=== PATIENT | female | born 2005 | race Caucasian/White ===

== ENCOUNTER 2025-01-15 02:21 | Emergency (ER) | payer OTHER, SELFPAY ==
--- OUTSIDE RECORDS SUMMARY | 2025-01-04 15:00 | XMS_ITS | Encounter Summary ---
Author Organization [employer] Address [address] [address] Care Team Providers Care Channeler Insole Name Role Phone Dariana Cantu APRN, CNP Primary Care Provide r Reason for Visit * ReasonCommentsPreop ExamPre-op; tonsil and adenoid removal; 01/11/2025; not sure; [facility]; [phone] Encounter Details DateTypeDepartmentCare Team (Latest Contact Info)Ckmtjnthjqr91/28/2025 3:00 PM CSTPre-Op Visit [place] [address] [facility] [address] [place] [address] [place] [address] [place], [place] [phone] Preop examination (Primary Dx); Tonsillar hypertrophy; Routine screening for STI (sexually transmitted infection); Need for hepatitis C screening test Social History Tobacco UseTypesPacks/DayYears UsedDateSmoking Tobacco: NeverPassive Smoke Exposure: NeverSmokeless Tobacco: NeverAlcohol UseStandard Drinks/WeekComments Not Currently0 (1 standard drink = 0.6 oz pure alcohol)PHQ-2AnswerDate Recorded PHQ-2 Fsrft737/05/2024CommentsNoSex and Gender InformationValueDate RecordedSex Assigned at BirthNot on fileLegal SubUoueth43/02/2021 11:30 AM CDT Gender IdentityNot on fileSexual OrientationNot on filedocumented as of this encounter Last Filed Vital Signs Vital SignReadingTime TakenCommentsBlood Dhkmlyus823/7301/04/2025 2:55 PM PUBLISHING DIRECTOR Nxkel696501/04/2025 2:55 PM UOIZxpdshcbsur17.8 ??C (98.2 ??F)01/04/2025 2:55 PM CSTRespiratory Tmet219103/06/2024 2:55 PM CSTOxygen Yppktenrlu70%01/04/2025 2:55 PM CSTInhaled Oxygen Concentration--Laymuw60.1 kg (128 lb)01/04/2025 2:55 PM PUBLISHING DIRECTOR Panrqb088.2 cm (5' 4.25)01/04/2025 2:55 PM CSTBody Mass Index21.8103/06/2024 2:55 PM CSTdocumented in this encounter Patient Instructions * Patient Instructions* Zuleyka Arroyo DO - 01/04/2025 3:00 PM PUBLISHING DIRECTOR Follow your individualized medication recommendations as described above. In addition, please stop all xcaj-vct-uidvffk medications including aspirin, ibuprofen (Advil, Motrin), naproxen [...] health-related equipment or devices you use daily ISHING DIRECTOR documented in this encounter OR Notes * H&P - Zuleyka Arroyo DO - 01/04/2025 3:00 PM CST Pre-Operative Assessment 01/04/2025 Pre-Op Assessment Procedure Details Procedure Bilateral Adenotonsillectomy Surgeon Maday Pizano Location (Internal) [facility] Procedure Date 01/11/2025 Fax Number [phone] Cedrick Regan is a 19 y.o. old [...] Neck pain 03/09/2022 PTSD (post-traumatic stress disorder) ([facility]) 03/09/2022 Acne 04/06/2021 Anxiety ([facility]) 11/28/2020 Depression 11/28/2020 Nonintractable headache 11/28/2020 Past [...] described above. In addition, please stop all snyd-ari-ynpgrmf medications including aspirin, ibuprofen (Advil, Motrin), naproxen [...] Family History Thromboembolic Disease Negative Family History ISHING DIRECTOR documented in this encounter Plan of Treatment Not on file documented as of this encounter Results * Test (Urine) (01/04/2025 3:24 PM PUBLISHING DIRECTOR)ComponentValueRef RangeTest MethodAnalysis TimePerformed AtPathologist SignatureHCG, UrineNegativeNegative 01/04/2025 3:29 PM [facility] LABORATORYSpecimen (Source)Anatomical Location / LateralityCollection Method / VolumeCollection TimeReceived TimeUrineNon- blood Collection / Einwyca1901/04/2025 3:24 PM CST01/04/2025 3:24 PM PUBLISHING DIRECTOR Narrative Authorizing ProviderResult TypeResult StatusCojosefa Arroyo DOLAB_1Final Result Performing OrganizationAddressCity/State/ZIP CodePhone Number [facility] CLIA: [id number] [address] [place] [address], [facility] * Chlamydia & GC, Urine (14 Years and Older) (01/04/2025 3:20 PM PUBLISHING DIRECTOR)Component ValueRef RangeTest MethodAnalysis TimePerformed AtPathologist Signature Chlamydia Trachomatis STDNot DetectedNot Ruynxssu74/29/2025 1:11 PM PUBLISHING DIRECTOR [facility] LABORATORYN. gonorrhoeae STDNot DetectedNot Detected 01/05/2025 1:11 PM CSTTHE [facility] LABORATORYSpecimen (Source) Anatomical Location / LateralityCollection Method / VolumeCollection Time Received TimeUrine STDNon-blood Collection / Hqluugi1501/04/2025 3:20 PM PUBLISHING DIRECTOR 01/04/2025 3:24 PM PUBLISHING DIRECTOR Narrative [facility] - 01/05/2025 1:11 PM PUBLISHING DIRECTOR Test performed by Programming Instructor Mediated Amplification (TMA). Authorizing ProviderResult TypeResult StatusCojosefa Arroyo DOLAB_1Final Result Performing OrganizationAddressCity/State/ZIP CodePhone Number [facility] CLIA: [id number] [address] [address] * Hemoglobin, Blood (01/04/2025 3:20 PM PUBLISHING DIRECTOR)ComponentValueRef RangeTest Method Analysis TimePerformed AtPathologist IjgfpfgszVemfreoozp89.612.0 - 15.5 g/dL 01/04/2025 3:24 PM CSTBEAVER LABORATORYSpecimen (Source)Anatomical Location / LateralityCollection Method / VolumeCollection TimeReceived TimeBlood Venipuncture / Dvwwtar4901/04/2025 3:20 PM CST01/04/2025 3:20 PM PUBLISHING DIRECTOR Narrative Authorizing ProviderResult TypeResult StatusCojosefa Arroyo DOLAB_1Final Result Performing OrganizationAddressCity/State/ZIP CodePhone Number [facility] CLIA: [id number] [address] [place] [address] * Hepatitis C Antibody, with Reflex (01/04/2025 3:20 PM PUBLISHING DIRECTOR)ComponentValueRef RangeTest MethodAnalysis TimePerformed AtPathologist SignatureHepatitis C AntibodyNegative (Non Reactive)Negative (Non Reactive)01/04/2025 7:[address] [facility]ORATORYComment:Antibodies to HCV not detected. Does not exclude the possiblity of exposure to HCV.Specimen (Source)Anatomical Location / LateralityCollection Method / VolumeCollection TimeReceived TimeBlood Venipuncture / Sbfkkck0701/04/2025 3:20 PM CST01/04/2025 3:20 PM PUBLISHING DIRECTOR Narrative Authorizing ProviderResult TypeResult StatusCojosefa KINNEYAB_1Final Result Performing OrganizationAddressCity/State/ZIP CodePhone Number [facility] CLIA: [id number] [address] documented in this encounter Visit Diagnoses Diagnosis Preop examination- Primary Preoperative examination, unspecified Tonsillar hypertrophy Hypertrophy of tonsils alone Routine screening for STI (sexually transmitted infection) Screening examination for venereal disease Need for hepatitis C screening test Special screening examination for other specified viral diseases documented in this encounter Care Teams Team MemberRelationshipSpecialtyStart DateEnd Date Dariana Cantu, JESSICA [place] [address] [place] [address] PCP - GeneralNurse Lpieucecemhf68/6/24documented as of this encounter
--- OUTSIDE RECORDS SUMMARY | 2025-01-04 15:20 | XMS_ITS | Encounter Summary ---
Author Organization [facility] Address [address], [place] [address] Care Team Providers Care Director Network Development Name Role Phone Dariana Cantu APRN, CNP Primary Care Provide r Encounter Details DateTypeDepartmentCare Team (Latest Contact Info)Dollfbigahp70/28/2025 3:20 PM CSTLab Visit [facility] [address] [place] [phone] Need for hepatitis C screening test; Preop examination; Routine screening for STI (sexually transmitted infection) Social History Tobacco UseTypesPacks/DayYears UsedDateSmoking Tobacco: NeverPassive Smoke Exposure: NeverSmokeless Tobacco: NeverAlcohol UseStandard Drinks/WeekComments Not Currently0 (1 standard drink = 0.6 oz pure alcohol)PHQ-2AnswerDate Recorded PHQ-2 Aunky180/05/2024CommentsNoSex and Gender InformationValueDate RecordedSex Assigned at BirthNot on fileLegal JosTsyxum71/02/2021 11:30 AM CDT Gender IdentityNot on fileSexual OrientationNot on filedocumented as of this encounter Plan of Treatment Not on file documented as of this encounter Procedures Procedure NamePriorityDate/TimeAssociated DiagnosisCommentsPREGNANCY TEST (URINE)Moawelq2401/04/2025 3:24 PM FURNITURE POLISHER Preop examination CHLAMYDIA & GC, URINE (14 YEARS AND OLDER)Iabgbwg5601/04/2025 3:20 PM FURNITURE POLISHER Routine screening for STI (sexually transmitted infection) HEMOGLOBIN, FSPCRRjwkakv62/28/2025 3:20 PM FURNITURE POLISHER Preop examination HEPATITIS C ANTIBODY, WITH REFLEX (ANTI-HCV)Nklymws2301/04/2025 3:20 PM FURNITURE POLISHER Need for hepatitis C screening test documented in this encounter Results * Test (Urine) (01/04/2025 3:24 PM FURNITURE POLISHER)ComponentValueRef RangeTest MethodAnalysis TimePerformed AtPathologist SignatureHCG, UrineNegativeNegative 01/04/2025 3:29 PM CSTOPHIR LABORATORYSpecimen (Source)Anatomical Location / LateralityCollection Method / VolumeCollection TimeReceived TimeUrineNon- blood Collection / Rsgplgp2601/04/2025 3:24 PM CST01/04/2025 3:24 PM FURNITURE POLISHER Narrative Authorizing ProviderResult TypeResult StatusCojosefa Arroyo DOLAB_1Final Result Performing OrganizationAddressCity/State/ZIP CodePhone Number [facility] CLIA: [id number] [address] [place] [address] * Chlamydia & GC, Urine (14 Years and Older) (01/04/2025 3:20 PM FURNITURE POLISHER)Component ValueRef RangeTest MethodAnalysis TimePerformed AtPathologist Signature Chlamydia Trachomatis STDNot DetectedNot Qtiwltgk51/29/2025 1:11 PM FURNITURE POLISHER [facility]ORYN. gonorrhoeae STDNot DetectedNot Detected 01/05/2025 1:11 PM CSTSC[facility] LABORATORYSpecimen (Source) Anatomical Location / LateralityCollection Method / VolumeCollection Time Received TimeUrine STDNon-blood Collection / Dbdmqpv9601/04/2025 3:20 PM FURNITURE POLISHER 01/04/2025 3:24 PM FURNITURE POLISHER Narrative [facility] - 01/05/2025 1:11 PM FURNITURE POLISHER Test performed by English Instructor Mediated Amplification (TMA). Authorizing ProviderResult TypeResult StatusComarlenitam Arroyo DOLAB_1Final Result Performing OrganizationAddressCity/State/ZIP CodePhone Number [facility] CLIA: [id number] [id number] [place] [address] * Hemoglobin, Blood (01/04/2025 3:20 PM FURNITURE POLISHER)ComponentValueRef RangeTest Method Analysis TimePerformed AtPathologist IoxyoxdnuNcatgaiaed08.612.0 - 15.5 g/dL 01/04/2025 3:24 PM CSTOPHIR LABORATORYSpecimen (Source)Anatomical Location / LateralityCollection Method / VolumeCollection TimeReceived TimeBlood Venipuncture / Obgjnaq7001/04/2025 3:20 PM CST01/04/2025 3:20 PM FURNITURE POLISHER Narrative Authorizing ProviderResult TypeResult StatusCojosefa Arroyo DOLAB_1Final Result Performing OrganizationAddressCity/State/ZIP CodePhone Number [facility] CLIA: [id number] [address] [place] [address] * Hepatitis C Antibody, with Reflex (01/04/2025 3:20 PM FURNITURE POLISHER)ComponentValueRef RangeTest MethodAnalysis TimePerformed AtPathologist SignatureHepatitis C AntibodyNegative (Non Reactive)Negative (Non Reactive)01/04/2025 7:14 PM FURNITURE POLISHER [facility] LABORATORYComment:Antibodies to HCV not detected. Does not exclude the possiblity of exposure to HCV.Specimen (Source)Anatomical Location / LateralityCollection Method / VolumeCollection TimeReceived TimeBlood Venipuncture / Uwylkzz9201/04/2025 3:20 PM CST01/04/2025 3:20 PM FURNITURE POLISHER Narrative Authorizing ProviderResult TypeResult StatusCojosefa Arroyo DOLAB_1Final Result Performing OrganizationAddressCity/State/ZIP CodePhone Number [facility] CLIA: [id number] [address] documented in this encounter Visit Diagnoses Diagnosis Need for hepatitis C screening test Special screening examination for other specified viral diseases Preop examination Preoperative examination, unspecified Routine screening for STI (sexually transmitted infection) Screening examination for venereal disease documented in this encounter Care Teams Team MemberRelationshipSpecialtyStart DateEnd Date Dariana Cantu, PARACHUTE ACCESSORIES ATTACHER, HYBRID CAR MECHANIC [address] [place] [address] PCP - GeneralNurse Zbxilzhiuutl16/6/24documented as of this encounter
--- OUTSIDE RECORDS SUMMARY | 2025-01-15 01:42 | XMS_ITS | Encounter Summary ---
Author Organization [facility] Address [address] [place] [address] Care Team Providers Care Deployment Technician Name Role Phone No Ref-Primary, Physician Primary Care Provider Reason for Visit * ReasonCommentsPost-op Problem Encounter Details DateTypeDepartmentCare Team (Latest Contact Info)Erwxbqdmswi13/09/2025 1:42 AM BILLET INSPECTOR - 01/15/2025 1:49 AM [facility]St[facility] [address] [place] [address] Discharge Disposition: Home or Self Care Social History Tobacco UseTypesPacks/DayYears UsedDateSmoking Tobacco: NeverPassive Smoke Exposure: NeverSmokeless Tobacco: NeverAdolescent EducationAnswerDate Recorded Getting School Help NeededNot on file3CommentsUnknownSex and Gender InformationValueDate RecordedSex Assigned at BirthNot on fileLegal Sex Lmqinr9708/07/2020 9:42 AM CDTGender IdentityNot on fileSexual OrientationNot on filedocumented as of this encounter Last Filed Vital Signs Vital SignReadingTime TakenCommentsBlood Jbhcmmbd360/8701/14/2025 9:07 PM BILLET INSPECTOR Ilkeo58300/08/2025 9:07 PM HNQDyejbacjvrj41.9 ??C (98.4 ??F)01/14/2025 9:07 PM CSTRespiratory Cvdc025503/17/2024 9:07 PM CSTOxygen Caanzuhlex67%01/14/2025 9:07 PM CSTInhaled Oxygen Concentration--Luaekz98.6 kg (122 lb 9.2 oz)01/14/2025 9:07 PM UGLVpgbvw775.6 cm (5' 4)01/14/2025 9:07 PM CSTBody Mass Index21.04103/17/2024 9:07 PM CSTdocumented in this encounter Functional Status * Calculated C-SSRS Risk Score (Lifetime/Recent)AnswerDate of AssessmentAuthorNo Risk Hngoqrpme17/08/2025 9:07 PM Mei Jacques RN * [place] Suicide Severity Rating Scale (Screener/Recent Self-Report)Question AnswerDate of AssessmentAuthor1. Wish to be (Past 1 Month)No01/14/2025 9:07 PM Mei Jacques RN2. Non-Specific Active Suicidal Thoughts (Past 1 Month)No01/14/2025 9:07 PM Mei Jacques RN6. Suicidal Behavior (Lifetime)No01/14/2025 9:07 PM Mei Jacques RN documented as of this encounter Medications at Time of Discharge MedicationSigDispense QuantityRefillsLast FilledStart DateEnd Date ondansetron (ZOFRAN ODT) 4 MG ODT tab Take 1 tablet (4 mg) by mouth every 6 hours as needed for nausea or vomiting 12 tablet 1documented as of this encounter ED Notes * Seda Boone RN - 01/15/2025 1:49 AM CST Called pt to take to a room and pt is not in the lobby ET INSPECTOR * Mei Cat RN - 01/14/2025 9:06 PM CST Patient reports she had a tonsillectomy on Tuesday. Patient states yesterday she was vomiting and today she can taste blood in the back of her throat. Patient upset that she was asked to wait in the lobby, patient left triage room, muttering profanities Triage Assessment Row Name 01/14/252105 Triage Assessment Airway WDL WDL Respiratory WDL Respiratory WDL WDL Skin Circulation/Temperature WDL Skin Circulation/Temperature WDL WDL Cardiac WDL Cardiac WDL WDL Peripheral/Neurovascular WDL Peripheral Neurovascular WDL WDL Cognitive/Neuro/Behavioral WDL Cognitive/Neuro/Behavioral WDL WDL ET INSPECTOR ET INSPECTOR ET INSPECTOR documented in this encounter Plan of Treatment Not on file documented as of this encounter Visit Diagnoses Not on filedocumented in this encounter Active and Recently Administered Medications Times are shown in BILLET INSPECTOR.Medication Order albuterol (PROVENTIL) neb solution 2.5 mg 2.5 mg, Nebulization, ONCE, On Tue01/15/25 at 0145, For 1 dose, Discontinue when tranexamic acid inhalation therapy is complete. * 0145 (Canceled Entry - Provider: Orders Generic Provider - Comment: Automatically canceled at discontinue of medication order) documented in this encounter Care Teams Team MemberRelationshipSpecialtyStart DateEnd Date No Ref-Primary, Physician PCP - General08/07/20documented as of this encounter
[2025-01-15 02:40] VITALS: BP 136/101; PULSE 94; RESP 16; TEMP 36.8; O2SAT 94; O2SAT 99; BMI 21.5
[2025-01-15] MEDS: ONDANSETRON 2 MG/ML inj 4 MG IVP (03:27)
[2025-01-15] MEDS: METOCLOPRAMIDE HCL 10 MG in 0.9 % SODIUM CHLORIDE 100 ml 100 ML 306 MG IVPB (04:50)
--- OUTSIDE RECORDS SUMMARY | 2025-01-15 04:59 | XMS_ITS | Clinical Summary ---
Author Organization [place] Address [address] [place] [address] Care Team Providers Care Account Leader Name Role Phone No Ref-Primary, Physician Primary Care Provider Allergies Active AllergyReactionsCriticalityNoted PctjVgcsmtrmJupgcGmyvj67/01/2021ulfa LbmywxjhtbvGztqx94/01/2021 Medications MedicationSigDispense QuantityRefillsLast FilledStart DateEnd DateStatus ondansetron (ZOFRAN ODT) 4 MG ODT tab Take 1 tablet (4 mg) by mouth every 6 hours as needed for nausea or vomiting 12 tablet 08/07/2020ctive Additional Information Patient not taking.Reported on 12/06/2023 Encounters DateTypeDepartmentCare EpjkTbhzqmwzvtt35/09/2025 1:42 AM GLUE DRIER OPERATOR - 01/15/2025 1:49 AM [facility] [address] [place] [phone] Discharge Disposition: Home or Self Care01/14/2025Travelfrom Last 3 Months Social History Tobacco UseTypesPacks/DayYears UsedDateSmoking Tobacco: NeverPassive Smoke Exposure: NeverSmokeless Tobacco: Never Tobacco Cessation:Counseling Given: Not Answered Adolescent EducationAnswerDate RecordedGetting School Help NeededNot on file 3CommentsUnknownSex and Gender InformationValueDate RecordedSex Assigned at BirthNot on fileLegal YrjSrgswu85/01/2021 9:42 AM CDTGender Identity Not on fileSexual OrientationNot on file Last Filed Vital Signs Vital SignReadingTime TakenCommentsBlood Zfjfdrst178/8712 9:07 PM GLUE DRIER OPERATOR Spmeg28064/08/2025 9:07 PM DVAYvuwxukvkbk58.9 ??C (98.4 ??F)01/14/2025 9:07 PM CSTRespiratory Pumj748503/17/2024 9:07 PM CSTOxygen Xulyekoyig00%01/14/2025 9:07 PM CSTInhaled Oxygen Concentration--Nkhtdu79.6 kg (122 lb 9.2 oz)01/14/2025 9:07 PM VXZZwxikg600.6 cm (5' 4)01/14/2025 9:07 PM CSTBody Mass Index21.04103/17/2024 9:07 PM GLUE DRIER OPERATOR Plan of Treatment Health MaintenanceDue DateLast DoneCommentsADVANCE CARE ANMVZHLI27/17/2005ANNUAL REVIEW OF HM RUIOII44 2004CHLAMYDIA FZOODTKPO66/17/2005HEPATITIS B VACCINE (2 of 3 - 3-dose series)YEARLY PREVENTIVE VISIT2007 DTAP/TDAP/TD VACCINE (2 - Tdap)HPV VACCINE (1 - 3-dose series)2019MENINGITIS B VACCINE (1 of 2 - Standard)1PHQ-2 (once per calendar year)5COVID-19 VACCINE (1 - season)2024 INFLUENZA VACCINE (#1)ZOSTER VACCINE (1 of 2)2054 PNEUMOCOCCAL VACCINE: PEDIATRICS (0 to 5 YEARS) AND AT-RISK PATIENTS (6 to 49 YEARS)Aged Out11/22/2006No longer eligible based on patient's age to complete this topicHIV IZWKCTRRPKlakggxkj36/05/2024HEPATITIS C SCREENINGCompleted 01/04/2025MENINGITIS VACCINEAged OutNo longer eligible based on patient's age to complete this topic Insurance Care Teams Team MemberRelationshipSpecialtyStart DateEnd Date No Ref-Primary, Physician PCP - General08/07/20
--- OUTSIDE RECORDS SUMMARY | 2025-01-15 04:59 | XMS_ITS | Clinical Summary ---
Author Organization [facility] Address [address] [address] Care Team Providers Care Injection Molding Engineer Name Role Phone Dariana Cantu APRN, CNP Primary Care Provide r Source Comments You are receiving this document as you are listed as the primary care provider,follow-up provider, or the patient has been referred to you for consultation.This is in compliance with the Medicare and[facility] Hospitalca[facility] EHR Incentive Program,which states Providers who transition their patient to another setting of careor provider of care or refers their patient to another provider of care shouldprovide summary care record for each transition of care or referral. [facility] Content Allergies Active AllergyReactionsCriticalityNoted LlxeAwjkveugMluplHlthWand86/13/2021ulfa TtudhjvrydfWmci10/13/2021 Medications MedicationSigDispense QuantityRefillsLast FilledStart DateEnd DateStatus tretinoin (RETIN-A) 0.05 % cream Indications:Acne vulgarisApply topically every evening. 45 g 1105Active Active Problems ProblemNoted DateDiagnosed DateTonsillar wckkeekcsxf11/19/2025 Assessment & Plan (09/25/2024 8:22 AM CDT): Given the sleep disruption, recurrent sore throats and missed working days, we will send to ENT forfurther evaluation and consideration of tonsillectomy and possible adenoidectomy. Orders: Otolaryngology Consult Adult/Peds Eating lkoswzbo02/31/2023Neck pain03/09/2022TSD (post-traumatic stress disorder)03/09/2022Acne04/06/20211643Oeejwxe90/22/9948Rfgbnhkukp12/22/2021 Nonintractable zjfrnjam25/22/2021 Resolved Problems ProblemNoted DateDiagnosed DateResolved FdvyOmveqdf62/28/202201/Vomiting /8475Bgwdqrrh50/22/202101/bnormal weight loss11/28/2020 03/09/2022 Encounters DateTypeDepartmentCare DntuXrsfaucpjuh01/01/2025Results Follow-Up [place] [address] [facility] [address] [place] [phone] Zuleyka Arroyo DO 01/04/2025 3:20 PM CSTLab Visit [address] [address] Need for hepatitis C screening test; Preop examination; Routine screening for STI (sexually transmitted infection)01/04/2025 3:00 PM POOL PLAYER Pre-Op Visit [address] [address] Zuleyka Arroyo DO Preop examination (Primary Dx); Tonsillar hypertrophy; Routine screening for STI (sexually transmitted infection); Need for hepatitis C screening testfrom Last 3 Months Immunizations ImmunizationAdministration DatesNext MemJKjN-IxnM-XNY (Pediarix)11/22/2006Hib (ActHIB)11/22/2006Influenza IIV4 (Quadrivalent) 0.5mL (31597)01/04/2022MMR 11/22/2006Pneumococcal 7, PED11/22/20063994Uiluvxrlp35/16/2007 Family History Medical HistoryRelationNameCommentsnarcissistic personality disorderBirth Father AnxietyBirth MotherThyroid DisorderPaternal GrandmotherAnxietySisterBleeding DisorderNegative Family HistoryThromboembolic DiseaseNegative Family History RelationNameStatusCommentsBirth FatherBirth MotherPaternal GrandmotherSister Alive Social History Tobacco UseTypesPacks/DayYears UsedDateSmoking Tobacco: NeverPassive Smoke Exposure: NeverSmokeless Tobacco: Never Tobacco Cessation:Counseling Given: No Alcohol UseStandard Drinks/WeekCommentsNot Currently0 (1 standard drink = 0.6 oz pure alcohol)PHQ-2AnswerDate RecordedPHQ-2 Zuhaf1734CommentsNoSex and Gender InformationValueDate RecordedSex Assigned at BirthNot on fileLegal JqoBkhjgn05/02/2021 11:30 AM CDTGender IdentityNot on fileSexual OrientationNot on file Last Filed Vital Signs Vital SignReadingTime TakenCommentsBlood Xxihcjcv984/7301/04/2025 2:55 PM POOL PLAYER Kutcs844901/04/2025 2:55 PM IPGUkqmkysvifr57.8 ??C (98.2 ??F)01/04/2025 2:55 PM CSTRespiratory Cvhe325803/06/2024 2:55 PM CSTOxygen Wjgfecmjpw35%01/04/2025 2:55 PM CSTInhaled Oxygen Concentration--Txncep47.1 kg (128 lb)01/04/2025 2:55 PM POOL PLAYER Blvamt092.2 cm (5' 4.25)01/04/2025 2:55 PM CSTBody Mass Index21.8103/06/2024 2:55 PM POOL PLAYER Plan of Treatment Health MaintenanceDue DateLast DoneCommentsMenB Immunization Discussion 2004HepB Vaccine (2)IPV (Polio) Vaccine (2 of 3 - 4- dose series)Varicella Vaccine (2 of 2 - 2-dose childhood series)HPV Vaccine (1 - 3-dose series)2019Adult Preventive Visit03/26//3DTaP/Tdap/Td Vaccine (2 - Tdap)2023 11/22/2006COVID-19 Vaccine (1 - 2024- season)2024Influenza Vaccine (#1) /6250Merauaosh95, 01/12/2024, 2Dexa 5004/19/2024Zoster/Shingles Vaccine (1 of 2)2054Hib Vaccine Hgvobveto31/16/2007Pneumococcal VaccineAged Out11/22/2006No longer eligible based on patient's age to complete this topicHIV Screening (Preventive Services) Rlygzcxjp92/05/2024Tuberculosis QapmntvccQfmmeiyiy00/05/2024Hep C Screening (Preventive Services)Pvceczrqt54/28/2025HepA VaccineAged OutNo longer eligible based on patient's age to complete this topicMCV4 VaccineAged OutNo longer eligible based on patient's age to complete this topic Procedures Procedure NamePriorityDate/TimeAssociated DiagnosisCommentsPREGNANCY TEST (URINE)Wefsyad3901/04/2025 3:24 PM POOL PLAYER Preop examination CHLAMYDIA & GC, URINE (14 YEARS AND OLDER)Wdkvdhw8601/04/2025 3:20 PM POOL PLAYER Routine screening for STI (sexually transmitted infection) HEPATITIS C ANTIBODY, WITH REFLEX (ANTI-HCV)Zduukxf4301/04/2025 3:20 PM POOL PLAYER Need for hepatitis C screening test HEMOGLOBIN, CTJJXImkxwgu52/28/2025 3:20 PM POOL PLAYER Preop examination DXA BONE DENSITY SPINE/XRMVpmsych54/13/2025 10:44 AM CDT Other closed fracture of proximal end of right tibia, initial encounter Osteopenia, unspecified location TB QUANTIFERON GOLD DBYZWisfesp78/05/2024 3:07 PM POOL PLAYER Lymphadenopathy HIV 1/2 AG/AB 4TH GYUBitjohh00/05/2024 3:07 PM POOL PLAYER Lymphadenopathy from Last 3 Months or Most Recently Relevant to Health Maintenance Results * Test (Urine) (01/04/2025 3:24 PM POOL PLAYER)ComponentValueRef RangeTest MethodAnalysis TimePerformed AtPathologist SignatureHCG, UrineNegativeNegative 01/04/2025 3:29 PM CSTKANSAS CITY LABORATORYSpecimen (Source)Anatomical Location / LateralityCollection Method / VolumeCollection TimeReceived TimeUrineNon- blood Collection / Yinpjpe7801/04/2025 3:24 PM CST01/04/2025 3:24 PM POOL PLAYER Narrative Authorizing ProviderResult TypeResult StatusCojosefa Arroyo DOLAB_1Final Result Performing OrganizationAddressCity/State/ZIP CodePhone Number [facility] CLIA: [id number] [address] [place] [address] * Chlamydia & GC, Urine (14 Years and Older) (01/04/2025 3:20 PM POOL PLAYER)Component ValueRef RangeTest MethodAnalysis TimePerformed AtPathologist Signature Chlamydia Trachomatis STDNot DetectedNot Kxmdsybx96/29/2025 1:11 PM POOL PLAYER [facility]ORYN. gonorrhoeae STDNot DetectedNot Detected 01/05/2025 1:11 PM CSTSET[facility] LABORATORYSpecimen (Source) Anatomical Location / LateralityCollection Method / VolumeCollection Time Received TimeUrine STDNon-blood Collection / Wsphhlb3201/04/2025 3:20 PM POOL PLAYER 01/04/2025 3:24 PM POOL PLAYER Narrative [facility] - 01/05/2025 1:11 PM POOL PLAYER Test performed by Poultry Feed Supervisor Mediated Amplification (TMA). Authorizing ProviderResult TypeResult StatusCojosefa Arroyo DOLAB_1Final Result Performing OrganizationAddressCity/State/ZIP CodePhone Number [facility] CLIA: [id number] [address] [place] [id number] [place] [address] * Hemoglobin, Blood (01/04/2025 3:20 PM POOL PLAYER)ComponentValueRef RangeTest Method Analysis TimePerformed AtPathologist JvcahuhtqVytoemuamz89.612.0 - 15.5 g/dL 01/04/2025 3:24 PM CSTKANSAS CITY LABORATORYSpecimen (Source)Anatomical Location / LateralityCollection Method / VolumeCollection TimeReceived TimeBlood Venipuncture / Iuhoedp0201/04/2025 3:20 PM CST01/04/2025 3:20 PM POOL PLAYER Narrative Authorizing ProviderResult TypeResult StatusCojosefa Arroyo DOLAB_1Final Result Performing OrganizationAddressCity/State/ZIP CodePhone Number [facility] CLIA: [id number] [address] [place] [address] * Hepatitis C Antibody, with Reflex (01/04/2025 3:20 PM POOL PLAYER)ComponentValueRef RangeTest MethodAnalysis TimePerformed AtPathologist SignatureHepatitis C AntibodyNegative (Non Reactive)Negative (Non Reactive)01/04/2025 7:14 PM POOL PLAYER [facility] LABORATORYComment:Antibodies to HCV not detected. Does not exclude the possiblity of exposure to HCV.Specimen (Source)Anatomical Location / LateralityCollection Method / VolumeCollection TimeReceived TimeBlood Venipuncture / Sennjiz1601/04/2025 3:20 PM CST01/04/2025 3:20 PM POOL PLAYER Narrative Authorizing ProviderResult TypeResult StatusCourttam Arroyo DOLAB_1Final Result Performing OrganizationAddressCity/State/ZIP CodePhone Number [facility] CLIA: [id number] [address] [place], [place] [address] * DXA Bone Density Spine/Hip (04/19/2024 10:44 AM CDT)ComponentValueRef Range Test MethodAnalysis TimePerformed AtPathologist SignatureDXA Lumbar Spine Bone Mineral Density1.019gm/mo0IUJEEXAF RESULTSDXA Lumbar Spine Z-Score0.0EXTERNAL RESULTSDXA Hip Left Bone Mineral Density1.007gm/fd9TMCMOMCL RESULTSDXA Hip Right Bone Mineral Density0.992gm/lb9VMUGWFAV RESULTSDXA Hip Left Z-Score0.5 EXTERNAL RESULTSDXA Hip Right Z-Score0.4EXTERNAL RESULTSDXA Femur Left Bone Mineral Density0.944gm/dc7PQNIYOHH RESULTSDXA Femur Right Bone Mineral Density 0.911gm/zr1KIPCHWTE RESULTSDXA Femur Left Z-Score0.9EXTERNAL RESULTSDXA Femur Right Z-Score0.6EXTERNAL RESULTSAnatomical RegionLateralityModalityLower Extremity, Spine, Hip, L-SpineOtherSpecimen (Source)Anatomical Location / LateralityCollection Method / VolumeCollection TimeReceived Time Narrative 04/20/2024 2:30 PM CDT Table formatting from the original result was not included. Patient Name: Shereen Harvey Densitometer: [employer] DISCOVERY A Appt Dept/Resource: Tria Bone Density TRIA BONE 5 Demographics Age: 19 y.o. Gender: Female Height: 5' 5.3 (1.659 m) Weight: 150 lb (68 kg) Race: Medical/Surgical History Menstrual periods: Regular ?? Both ovaries removed?: No Able to stand from a chair easily without use of the arms?: Yes, easily How many falls indoors/outdoors within the last 12 months?: 1 History of fractures in parents: No ? Hip replacement?: No Oral cortisone or steroid medication for more than 3 months?: No ?? Currently or have taken medications to treat osteoporosis?: No ?? Taking any aromatase inhibitor medication for breast cancer - anti-estrogen excluding tamoxifen?: No ?? Have had the following medical conditions: None Dietary/Habit Alcohol 3 units or more per day on average?: No Currently smoking tobacco? No Daily servings of calcium rich food: 3 Do you take a daily calcium supplement?: No Other pertinent history: Pt has a tibia fracture- unknown cause Dual-X-ray Absorptiometry (DXA) Results Skeletal Site BMD (gm/cm2) T-Score Z-Score % Change from Previous Scan dated: N/A Spine (L1, L2, L4, L3) 1.019 N/A 0.0 N/A Left Hip (Total) 1.007 N/A 0.5 N/A Left Hip (Femoral neck) 0.944 N/A 0.9 N/A Right Hip (Total) 0.992 N/A 0.4 N/A Right Hip (Femoral neck) 0.911 N/A 0.6 N/A ??*N/A indicates that measurements were either not needed or not valid TBS: Trabecular Bone Score (TBS): 1.573 FRAX Score: 10 Year Risk Hip Fracture: 0% 10 Year Risk Major Osteoporotic Fracture: 1.2% Comments: *In men younger than 50 and pre-menopausal women, Z scores, not T scores, are preferred (International Society for Clinical Densitometry). A Z score of -2.0 or lower is defined as below the expected range for age and a Z score of above -2.0 is within the expected range for age. *This is a baseline study at this center (no comparison) Diagnosis: *No evidence of low bone mass (osteopenia)/osteoporosis Recommendations:. *Recommend lifestyle modifications as needed, including proper Calcium/Vitamin D intake, weight bearing exercises, and fall prevention. *Consider follow up DXA ??in 10 years, unless clinical circumstances change. Changes of spine and total hip bone density >= 0.03 g/cm2 are beyond densitometer precision error and generally are considered significant when the current and prior studies were done on the same densitometer. FRAX Explanation: The 10 year risks of hip and major osteoporotic fractures (clinical spine, forearm, hip or shoulder fracture) are calculated by the FRAX algorithm based on femoral neck bone density, age, gender, race/ethnicity, weight, height, previous fracture, parental hip fracture, smoking status, glucocorticoid intake, history of RA, secondary osteoporosis, and high alcohol consumption. FRAX fracture risk estimates are adjusted for Trabecular Bone Score (TBS) when available. Trabecular Bone Score (TBS) is a measure of the microarchitectural integrity of trabecular bone, and is derived from the pjtdd-fz-kxfub changes of bone density embedded in the AP spine BMD image. TBS is only modestly correlated with BMD, and is modestly associated with incident major osteoporotic and hip fractures independent of BMD and other risk factors. FRAX Fracture Risk Categories in terms of major osteoporotic fractures: < 10% = low fracture risk >= 10% and <15% = mildly increased fracture risk >= 15% and <20% = moderately increased fracture risk >= 20% and <30% = high fracture risk >= 30% = very high fracture risk National Osteoporosis Foundation Treatment Guideline A clinician may consider FDA-approved medical therapies in postmenopausal women and men aged 50 years and older, if one or more of the following is present (clinical correlation required and therapy may not always be indicated): The patient has a hip or vertebral fracture. T-score <= -2.5 at the femoral neck, hip, or spine after appropriate evaluation to exclude secondary causes. Low bone mass (T-score between -1.0 and -2.5 at the femoral neck, hip or spine) and a 10-year probability of a hip fracture >= 3% or a 10-year probability of a major osteoporosis-related fracture >= 20% based on the FRAX scores. ?? Authorizing ProviderResult TypeResult StatusDejeanne Iniguez MDRAD DEXAFinal Result * HIV 1/2 Ag/Ab 4th Generation (01/12/2024 3:07 PM POOL PLAYER)ComponentValueRef Range Test MethodAnalysis TimePerformed AtPathologist SignatureHIV 1/2 Antigen/Antibody (4th generation)Negative (Non Reactive)Negative (Non Reactive)01/12/2024 8:55 PM CSTMETHODIST LABORATORYComment:HIV-1 p24 Antigen and HIV-1/HIV-2 Antibody not detectedSpecimen (Source)Anatomical Location / LateralityCollection Method / VolumeCollection TimeReceived TimeBlood Venipuncture / Zkmjjix6301/12/2024 3:07 PM CST01/12/2024 3:07 PM POOL PLAYER Narrative Authorizing ProviderResult TypeResult StatusJennyoly Cantu APRN, CNPLAB_1Final ResultPerforming OrganizationAddressCity/State/ZIP CodePhone Number [facility] [address] from Last 3 Months or Most Recently Relevant to Health Maintenance Insurance Care Teams Team MemberRelationshipSpecialtyStart DateEnd Date Dariana Cantu, ORACLE SOA DEVELOPER, COMMODITY INDUSTRY ANALYST [address] [place] [address] PCP - GeneralNurse Pxybnsepnjeo10/6/24
--- OUTSIDE RECORDS SUMMARY | 2025-01-15 04:59 | XMS_ITS | Encounter Summary ---
Author Organization [email or web address] Address [address], [place] [address] Care Team Providers Care Measuring Machine Tender Name Role Phone Dariana Cantu APRN, CNP Primary Care Provide r Encounter Details DateTypeDepartmentCare Team (Latest Contact Info)Toephfahoan43/01/2025Results Follow-Up [place] [address] [facility] [address] [place] [phone] [place] [address] [place] [address] Social History Tobacco UseTypesPacks/DayYears UsedDateSmoking Tobacco: NeverPassive Smoke Exposure: NeverSmokeless Tobacco: NeverAlcohol UseStandard Drinks/WeekComments Not Currently0 (1 standard drink = 0.6 oz pure alcohol)PHQ-2AnswerDate Recorded PHQ-2 Umydd815/05/2024CommentsNoSex and Gender InformationValueDate RecordedSex Assigned at BirthNot on fileLegal ElkKklcdl28/02/2021 11:30 AM CDT Gender IdentityNot on fileSexual OrientationNot on filedocumented as of this encounter Plan of Treatment Not on file documented as of this encounter Visit Diagnoses Not on filedocumented in this encounter Care Teams Team MemberRelationshipSpecialtyStart DateEnd Date Dariana Cantu APRN, CNP [address] [place] [address] PCP - GeneralNurse Taoyeplteibz59/6/24documented as of this encounter
--- OUTSIDE RECORDS SUMMARY | 2025-01-15 04:59 | XMS_ITS | Encounter Summary ---
Author Organization [facility] Address [address], [place] [address] Care Team Providers Care Restaurant Managing Partner Name Role Phone Dariana Cantu APRN, CNP Primary Care Provide r Encounter Details DateTypeDepartmentCare Team (Latest Contact Info)Xryskrpkgaz60/24/2025Results Follow-Up [place] [address] [facility] [address] [place] [address] Avinash Guy MD [address] [place] [address] Social History Tobacco UseTypesPacks/DayYears UsedDateSmoking Tobacco: NeverPassive Smoke Exposure: NeverSmokeless Tobacco: NeverAlcohol UseStandard Drinks/WeekComments Not Currently0 (1 standard drink = 0.6 oz pure alcohol)PHQ-2AnswerDate Recorded PHQ-2 Anbbr141/05/2024CommentsNoSex and Gender InformationValueDate RecordedSex Assigned at BirthNot on fileLegal IjyScsfqi91/02/2021 11:30 AM CDT Gender IdentityNot on fileSexual OrientationNot on filedocumented as of this encounter Plan of Treatment Not on file documented as of this encounter Visit Diagnoses Not on filedocumented in this encounter Care Teams Team MemberRelationshipSpecialtyStart DateEnd Date Dariana Cantu APRN, CNP [address] [place] [address] PCP - GeneralNurse Cvvoohmbiilc27/6/24documented as of this encounter
--- OUTSIDE RECORDS SUMMARY | 2025-01-15 04:59 | XMS_ITS | Encounter Summary ---
Author Organization [facility] Address [address] [place] [address] Care Team Providers Care Telegraph Repeater Installer Name Role Phone No Ref-Primary, Physician Primary Care Provider Encounter Details DateTypeDepartmentCare Team (Latest Contact Info)Eracrteinsv92/08/2025Travel Social History Tobacco UseTypesPacks/DayYears UsedDateSmoking Tobacco: NeverPassive Smoke Exposure: NeverSmokeless Tobacco: NeverAdolescent EducationAnswerDate Recorded Getting School Help NeededNot on file3CommentsUnknownSex and Gender InformationValueDate RecordedSex Assigned at BirthNot on fileLegal Sex Xuaqne6008/07/2020 9:42 AM CDTGender IdentityNot on fileSexual OrientationNot on filedocumented as of this encounter Functional Status * Calculated C-SSRS Risk Score (Lifetime/Recent)AnswerDate of AssessmentAuthorNo Risk Xljilyxeh84/08/2025 9:07 PM Mei Jacques RN * [place] Suicide Severity Rating Scale (Screener/Recent Self-Report)Question AnswerDate of AssessmentAuthor1. Wish to be (Past 1 Month)No01/14/2025 9:07 PM Mei Jacques RN2. Non-Specific Active Suicidal Thoughts (Past 1 Month)No01/14/2025 9:07 PM Mei Jacques RN6. Suicidal Behavior (Lifetime)No01/14/2025 9:07 PM Mei Jacques RN documented as of this encounter Plan of Treatment Not on file documented as of this encounter Visit Diagnoses Not on filedocumented in this encounter Care Teams Team MemberRelationshipSpecialtyStart DateEnd Date No Ref-Primary, Physician PCP - General08/07/20documented as of this encounter
--- NOTE | 2025-01-15 06:30 | ED.GENADULT ---
HPI - General Adult General Chief complaint: Nausea/Vomiting Stated complaint: Tonsil Bleed Time Seen by Provider: 01/15/25 05:47 History of Present Illness HPI narrative: patient had tonsil surgery Tuesday at [facility] same day surgery. was DC with Vicodin and Zofran, patient has been having issues with nausea for the past few days, reports yesterday she vomited and it appeared bloody . no obvious bleeding observed in throat in triage. 19-year-old young woman presenting to the emergency department 3 days after tonsillectomy for recurrent throat infections ever since she had mono she says. Has been struggling with nausea. Did vomit yesterday and looked like there was some blood in it in. She feels weak, tired. Ultimately does feel she would benefit from an IV. Is having pain and would appreciate some pain medication. Took 1 tablet of Vicodin about an hour prior to arrival. She says they are not helping. Gets nauseated with oxycodone. No fever. No difficulty breathing Related Data Home Medications ?Medication ?Instructions ?Recorded ?Confirmed No Known Home Medications 01/02/23 01/02/23 Allergies Allergy/AdvReac Type Severity Reaction Status Date / Time Sulfa (Sulfonamide Allergy Severe Rash Verified 01/02/23 09:43 Antibiotics) latex Allergy Intermediate rash Verified 01/02/23 09:43 Review of Systems Status of ROS: Reports: 6 or more systems reviewed and unremarkable except as noted in History and below [facility] Medical History Sore throat ?J02.9 - Acute pharyngitis, unspecified (ICD-10) Surgical History (Updated 01/16/25 @ 19:48 by Lori Guaman MD) Status post tonsillectomy ?Z90.89 - Acquired absence of other organs (ICD-10) Social History Smoking Status: Never smoker Do you use any of these nicotine containing products: None Second hand tobacco smoke exposure: Yes How often do you have a drink containing alcohol: never How often do you have six or more drinks on one occasion: Never AUDIT-C Alcohol total score: 0 Non-prescribed substance use: marijuana (any form) Non-prescribed substance use details: I smoke weed every day. service: No Exam Narrative: Exam Narrative: Accompanied by friend. Pleasant. Does appear tired. Speaking with a bit of the affected voice/hot potato voice not inconsistent postop. Neck is supple without unusual swelling. Lungs appear clear. There is no stridor. Heart in elevated rate regular rhythm. Skin is warm and dry. No peripheral edema. Oropharyngeal exam with intact yellow scabs/eschar. On the right outer tonsillar pillar area there are a few purple dots of possible discrete more recent scab. I do not appreciate any active bleeding or other evidence. Const: Vital Signs, click to edit/add: Vital Signs - 24 hr 01/15/25 02:40 01/15/25 02:40 Temperature 98.3 F Pulse Rate [Pulse Oximeter] 94 Respiratory Rate 16 16 Blood Pressure [Ri ght Upper Arm] 136/101 H Pulse Oximetry 94 99 Oxygen Delivery Me thod Room Air Room Air Documenting provider has reviewed patient's vital signs: yes Course Vital Signs Vital signs: Initial Vital Signs Temperature 98.3 F 01/15/25 02:40 Temperature Source Temporal Artery Scan 01/15/25 02:40 Pulse Rate 94 01/15/25 02:40 Respiratory Rate 16 01/15/25 02:40 Respiratory Effort Normal, Spontaneous, Non-Labored 01/15/25 02:40 Respiratory Depth Normal 01/15/25 02:40 Respiratory Pattern Normal 01/15/25 02:40 Blood Pressure 136/101 H 01/15/25 02:40 Blood Pressure Mean 112 H 01/15/25 02:40 Blood Pressure Position Sitting 01/15/25 02:40 Pulse Oximetry 94 01/15/25 02:40 Oxygen Delivery Method Room Air 01/15/25 02:40 Vital Signs Temperature 98.3 F 01/15/25 02:40 Pulse Rate 94 01/15/25 02:40 Respiratory Rate 16 01/15/25 02:40 Blood Pressure 136/101 H 01/15/25 02:40 Pulse Oximetry 94 01/15/25 02:40 Oxygen Delivery Method Room Air 01/15/25 02:40 Temperature 98.3 F 01/15/25 02:40 Pulse Rate 94 01/15/25 02:40 Respiratory Rate 16 01/15/25 02:40 Blood Pressure 136/101 H 01/15/25 02:40 Pulse Oximetry 99 01/15/25 02:40 Oxygen Delivery Method Room Air 01/15/25 02:40 Medications Administered Medications: Discontinued Medications Generic Name Dose Route Start Last Admin Trade Name Julio PRN Reason Stop Dose Admin Diphenhydramine HCl 25 mg 01/15/25 05:48 01/15/25 04:50 Diphenhydramine 50 Mg/Ml Inj IVP 01/15/25 05:49 25 mg ONCE ONE Administration Hydromorphone HCl 0.5 mg 01/15/25 05:48 01/15/25 03:27 Hydromorphone 0.5 Mg/0.5 Ml Inj IVP 01/15/25 05:49 0.5 mg ONCE ONE Administration Sodium Chloride 1,000 mls @ 1,000 mls/hr 01/15/25 05:48 01/15/25 07:04 0.9 % Sodium Chloride 1000 Ml IV 01/15/25 06:47 Infused .Q1H ONE Infusion Metoclopramide HCl 10 mg/ 102 mls @ 306 mls/hr 01/15/25 05:48 01/15/25 05:00 Sodium Chloride IVPB 01/15/25 06:07 Infused ONCE ONE Infusion Ondansetron HCl 4 mg 01/15/25 05:48 01/15/25 03:27 Ondansetron 2 Mg/Ml Inj IVP 01/15/25 05:49 4 mg ONCE ONE Administration Medical Decision Making MDM Narrative Medical decision making narrative: I think can focus on symptom relief, control at this time. Monitor closely for further bleeding. Does not appear to have secondary infection. Placing IV with normal saline. Zofran and Dilaudid. On reassessment pain is improved but still with nausea. Further given diphenhydramine and Reglan. Ultimately requesting departure from the ER. Said she just wanted to go home and sleep. It is ideal that you have a postop follow-up appointment tomorrow. You can definitely take 2 tabs of [place] per dose if needed.? If you are prone to a little nausea with them, Can pre treat with diphenhydramine.? If that does not work then the Zofran that you have for nausea. Unless you were advised by ENT otherwise, can take up to 800 mg of ibuprofen per dose.? This can be combined with the [place]. Return for persistent increased bleeding, intractable vomiting, fever, marked increase in pain/uncontrolled pain. Medical Records Medical records reviewed: Yes I reviewed the patient's medical records Discharge Plan Discharge Clinical Impression: Post-op pain, Dehydration Patient Disposition: Home w/ Parent or Adult Condition: Improved Additional Instructions: It is ideal that you have a postop follow-up appointment tomorrow. You can definitely take 2 tabs of [place] per dose if needed.? If you are prone to a little nausea with them, Can pre treat with diphenhydramine.? If that does not work then the Zofran that you have for nausea. Unless you were advised by ENT otherwise, can take up to 800 mg of ibuprofen per dose.? This can be combined with the [place]. Return for persistent increased bleeding, intractable vomiting, fever, marked increase in pain/uncontrolled pain. Prescriptions: No Action No Known Home Medications Follow Up/Referrals: Provider,Not a Local [Primary Care Provider, Family Practice] Stand Alone Forms: Facio Info Instructions
== END 2025-01-15 05:50 | disposition home or self-care (01) ==
PROVIDERS: Emergency Provider Family Medicine
DX: E86.0 Dehydration (principal); J95.830 Postprocedural hemorrhage of a respiratory system organ or structure following a respiratory system procedure; Z90.89 Acquired absence of other organs
CPT/HCPCS: 96361; 96365; 96374; 96375; 99284; 99285; J1171; J1200; J2405; J2765; J7030

== ENCOUNTER 2025-01-16 19:18 | Emergency (ER) | payer OTHER, SELFPAY ==
--- OUTSIDE RECORDS SUMMARY | 2025-01-04 15:00 | XMS_ITS | Encounter Summary ---
Author Organization [employer] Address [address] [address] Care Team Providers Care Fuel Cell Designer Name Role Phone Dariana Cantu APRN, CNP Primary Care Provide r Reason for Visit * ReasonCommentsPreop ExamPre-op; tonsil and adenoid removal; 01/11/2025; not sure; [facility]; [phone] Encounter Details DateTypeDepartmentCare Team (Latest Contact Info)Wycfqmlyeyr84/28/2025 3:00 PM CSTPre-Op Visit [place] [address] [facility] [address] [place] [address] [place] [address] [place], [place] [phone] Preop examination (Primary Dx); Tonsillar hypertrophy; Routine screening for STI (sexually transmitted infection); Need for hepatitis C screening test Social History Tobacco UseTypesPacks/DayYears UsedDateSmoking Tobacco: NeverPassive Smoke Exposure: NeverSmokeless Tobacco: NeverAlcohol UseStandard Drinks/WeekComments Not Currently0 (1 standard drink = 0.6 oz pure alcohol)PHQ-2AnswerDate Recorded PHQ-2 Wwmzq811/05/2024CommentsNoSex and Gender InformationValueDate RecordedSex Assigned at BirthNot on fileLegal ZzrYiqpeh68/02/2021 11:30 AM CDT Gender IdentityNot on fileSexual OrientationNot on filedocumented as of this encounter Last Filed Vital Signs Vital SignReadingTime TakenCommentsBlood Xktzzafi221/7301/04/2025 2:55 PM CERTIFIED ETHICAL HACKER Ogowu900201/04/2025 2:55 PM TCVOjlnmexvkgk34.8 ??C (98.2 ??F)01/04/2025 2:55 PM CSTRespiratory Yeae489703/06/2024 2:55 PM CSTOxygen Xoymyjvqlo99%01/04/2025 2:55 PM CSTInhaled Oxygen Concentration--Tttoyn97.1 kg (128 lb)01/04/2025 2:55 PM CERTIFIED ETHICAL HACKER Ihqbfe631.2 cm (5' 4.25)01/04/2025 2:55 PM CSTBody Mass Index21.8103/06/2024 2:55 PM CSTdocumented in this encounter Patient Instructions * Patient Instructions* Zuleyka Arroyo DO - 01/04/2025 3:00 PM CERTIFIED ETHICAL HACKER Follow your individualized medication recommendations as described above. In addition, please stop all fykn-dcw-grqyrxs medications including aspirin, ibuprofen (Advil, Motrin), naproxen (Aleve, Naprosyn), herbal remedies and supplements one week prior to procedure unless directed otherwise by your care team. You may continue to take acetaminophen (Tylenol) up to the dayof your procedure. Continue all other medications as currently taking. Let your care team know if you have questions. On the day of your procedure, do not wear any hair product including hair sprays and gels and avoidusing body sprays and deodorants/antiperspirants. Bring with you to the site of the procedure: Any oral appliances or CPAP equipment related to sleep apnea Any other health-related equipment or devices you use daily IFIED ETHICAL HACKER documented in this encounter OR Notes * H&P - Zuleyka Arroyo DO - 01/04/2025 3:00 PM CST Pre-Operative Assessment 01/04/2025 Pre-Op Assessment Procedure Details Procedure Bilateral Adenotonsillectomy Surgeon Maday Pizano Location (Internal) [facility] Procedure Date 01/11/2025 Fax Number [phone] Cedrick Regan is a 19 y.o. old female here for pre-operative evaluation for procedure noted above. The patient has had surgery (wisdom teeth) previously without any anesthesia complications and denies any family history of anesthesia complications. No personal or family history of bleeding/clotting disorders. she denies any chest pain or shortness of breath with exertion and has otherwise been feeling well and at baseline. she voices no further concerns at this time. Patient Active Problem List Diagnosis Date Noted Tonsillar hypertrophy 09/25/2024 Eating disorder 03/09/2022 Neck pain 03/09/2022 PTSD (post-traumatic stress disorder) ([facility]) 03/09/2022 Acne 04/06/2021 Anxiety ([facility]) 11/28/2020 Depression 11/28/2020 Nonintractable headache 11/28/2020 Past Medical History[1] Past Surgical History[2] Current Outpatient Medications Medication Instructions tretinoin (RETIN-A) 0.05 % cream Topical, EVENING Allergies Allergen Reactions Drug Ingredient [Latex] Rash Sulfa Antibiotics Rash Social History Occupational History Not on file Tobacco Use Smoking status: Never Passive exposure: Never Smokeless tobacco: Never Vaping Use Vaping status: Never Used Substance and Sexual Activity Alcohol use: Not Currently Drug use: Yes Frequency: 4.0 times per week Types: Marijuana Sexual activity: Yes Partners: Male control/protection: Condom Patient's last menstrual period was 12/21/2024 (exact date). Family History[3] Review of Systems: 01/04/2025 ET Amb PreOp Assessment Sx Have you had a heart attack in the last 30 days? No Have you experienced chest tightening or chest pressure with activity? No Do you wake at night with difficulty breathing? No Do you have swelling in your feet or ankles? No Do you get short of breath if lying flat at night? No Do you hear wheezing or whistling when you breathe? No Have you had a cough, runny nose, or cold symptoms in the last 2 weeks? No Have you tested positive for Covid in the last 6 months? No Do you have a long-standing cough? No Do you snore or are you sleepy during the day? No Do you have any symptoms due to a recent concussion? No Do you or close relatives have bleeding or clotting problems? No Have you taken Aspirin, Ibuprofen (Advil) or Naproxen (Aleve) in the last 7 days? No Do you or close relatives have a history of a severe or life-threatening reaction to anesthesia? No Estimated Functional Capacity Can you climb one flight of stairs, or walk up a gradual uphill without stopping? yes, functional capacity is more than or equal to 4 METS Objective BP 122/73 (BP Location: Left Arm, BP Cuff Size: Regular - Long) Pulse 80 Temp 98.2 ??F (36.8 ??C) (Oral) Resp 16 Ht 5' 4.25 (1.632 m) Wt 128 lb (58.1 kg) LMP 12/21/2024 (Exact Date) SpO2 99% BMI 21.80 kg/m?? Physical Exam: General Appearance: alert, well appearing, and in no apparent distress Eyes: lids normal, sclera clear, and conjunctiva normal ENT: oropharynx clear, b/l tonsils slightly enlarged without exudates. Neck: no lymphadenopathy and no thyromegaly or nodules Heart: regular rate and rhythm and no murmurs, gallops or rubs Lungs: clear to auscultation and no wheezes, rales or rhonchi Abdomen: soft, nondistended, nontender, no palpable masses, and no organomegaly Extremities: no edema Skin: no rashes or worrisome lesions Neurologic: normal speech and no facial droop Data: Labs: Today: 01/04/2025. Recent Results (from the past 72 hours) Hemoglobin, Blood Collection Time: 01/04/25 3:20 PM Result Value Ref Range Hemoglobin 13.6 12.0 - 15.5 g/dL Test (Urine) Collection Time: 01/04/25 3:24 PM Result Value Ref Range HCG, Urine Negative Negative . ECG: Not indicated for this procedure. Assessment/Plan Patient is medically optimized for planned procedure(s). ICD-10-CM 1. Preop examination Z01.818 Hemoglobin, Blood Test (Urine) 2. Tonsillar hypertrophy J35.1 3. Routine screening for STI (sexually transmitted infection) Z11.3 Chlamydia & GC, Urine (14 Years and Older) 4. Need for hepatitis C screening test Z11.59 Hepatitis C Antibody, with Reflex Special risks: None Medication recommendations: Patient Instructions Follow your individualized medication recommendations as described above. In addition, please stop all tgmc-qda-irnurvz medications including aspirin, ibuprofen (Advil, Motrin), naproxen (Aleve, Naprosyn), herbal remedies and supplements one week prior to procedure unless directed otherwise by your care team. You may continue to take acetaminophen (Tylenol) up to the dayof your procedure. Continue all other medications as currently taking. Let your care team know if you have questions. On the day of your procedure, do not wear any hair product including hair sprays and gels and avoidusing body sprays and deodorants/antiperspirants. Bring with you to the site of the procedure: Any oral appliances or CPAP equipment related to sleep apnea Any other health-related equipment or devices you use daily Electronically signed by: Zuleyka Arroyo DO 01/04/2025, 3:29 PM [1] History reviewed. No pertinent past medical history. [2] Past Surgical History: Procedure Laterality Date WISDOM TEETH EXTRACTION [3] Family History Problem Relation Name Age of Onset Anxiety Mother Other (narcissistic personality disorder) Father Anxiety Sister Thyroid Disorder Paternal Grandmother Bleeding Disorder Negative Family History Thromboembolic Disease Negative Family History IFIED ETHICAL HACKER documented in this encounter Plan of Treatment Not on file documented as of this encounter Results * Test (Urine) (01/04/2025 3:24 PM CERTIFIED ETHICAL HACKER)ComponentValueRef RangeTest MethodAnalysis TimePerformed AtPathologist SignatureHCG, UrineNegativeNegative 01/04/2025 3:[address] [facility] LABORATORYSpecimen (Source)Anatomical Location / LateralityCollection Method / VolumeCollection TimeReceived TimeUrineNon- blood Collection / Apzqvzp5001/04/2025 3:24 PM CST01/04/2025 3:24 PM CERTIFIED ETHICAL HACKER Narrative Authorizing ProviderResult TypeResult StatusCojosefa Arroyo DOLAB_1Final Result Performing OrganizationAddressCity/State/ZIP CodePhone Number [facility] CLIA: [id number] [address] [place] [address], [facility] * Chlamydia & GC, Urine (14 Years and Older) (01/04/2025 3:20 PM CERTIFIED ETHICAL HACKER)Component ValueRef RangeTest MethodAnalysis TimePerformed AtPathologist Signature Chlamydia Trachomatis STDNot DetectedNot Cehadwyr57/29/2025 1:11 PM CERTIFIED ETHICAL HACKER [facility] LABORATORYN. gonorrhoeae STDNot DetectedNot Detected 01/05/2025 1:11 PM [facility]STNEXUS [facility] LABORATORYSpecimen (Source) Anatomical Location / LateralityCollection Method / VolumeCollection Time Received TimeUrine STDNon-blood Collection / Modtsiy9301/04/2025 3:20 PM CERTIFIED ETHICAL HACKER 01/04/2025 3:24 PM CERTIFIED ETHICAL HACKER Narrative [facility] - 01/05/2025 1:11 PM CERTIFIED ETHICAL HACKER Test performed by Curriculum Coordinator Mediated Amplification (TMA). Authorizing ProviderResult TypeResult StatusCojosefa Arroyo DOLAB_1Final Result Performing OrganizationAddressCity/State/ZIP CodePhone Number [facility] CLIA: [id number] [address] [address] * Hemoglobin, Blood (01/04/2025 3:20 PM CERTIFIED ETHICAL HACKER)ComponentValueRef RangeTest Method Analysis TimePerformed AtPathologist AokcgucgwUpfbozpvyl52.612.0 - 15.5 g/dL 01/04/2025 3:24 PM CSTBIRMINGHAM LABORATORYSpecimen (Source)Anatomical Location / LateralityCollection Method / VolumeCollection TimeReceived TimeBlood Venipuncture / Fyqkpxa5101/04/2025 3:20 PM CST01/04/2025 3:20 PM CERTIFIED ETHICAL HACKER Narrative Authorizing ProviderResult TypeResult StatusCojosefa Arroyo DOLAB_1Final Result Performing OrganizationAddressCity/State/ZIP CodePhone Number [facility] CLIA: [id number] [address] [place] [address] * Hepatitis C Antibody, with Reflex (01/04/2025 3:20 PM CERTIFIED ETHICAL HACKER)ComponentValueRef RangeTest MethodAnalysis TimePerformed AtPathologist SignatureHepatitis C AntibodyNegative (Non Reactive)Negative (Non Reactive)01/04/2025 7:14 [address]ERTIFIED ETHICAL HACKER [facility] LABORATORYComment:Antibodies to HCV not detected. Does not exclude the possiblity of exposure to HCV.Specimen (Source)Anatomical Location / LateralityCollection Method / VolumeCollection TimeReceived TimeBlood Venipuncture / Azsebfi0001/04/2025 3:20 PM CST01/04/2025 3:20 PM CERTIFIED ETHICAL HACKER Narrative Authorizing ProviderResult TypeResult StatusCojosefa KINNEYAB_1Final Result Performing OrganizationAddressCity/State/ZIP CodePhone Number [facility] CLIA: [id number] [address] documented in this encounter Visit Diagnoses Diagnosis Preop examination- Primary Preoperative examination, unspecified Tonsillar hypertrophy Hypertrophy of tonsils alone Routine screening for STI (sexually transmitted infection) Screening examination for venereal disease Need for hepatitis C screening test Special screening examination for other specified viral diseases documented in this encounter Care Teams Team MemberRelationshipSpecialtyStart DateEnd Date Dariana Cantu, JESSICA [place] [address] [place] [address] PCP - GeneralNurse Yzrfwphwthkd15/6/24documented as of this encounter
--- OUTSIDE RECORDS SUMMARY | 2025-01-04 15:20 | XMS_ITS | Encounter Summary ---
Author Organization [facility] Address [address] [address] Care Team Providers Care Date Night Sitter Name Role Phone Dariana Cantu APRN, CNP Primary Care Provide r Encounter Details DateTypeDepartmentCare Team (Latest Contact Info)Ldhutfpcrqh11/28/2025 3:20 PM CSTLab Visit [facility] [id number] [place] [phone] Need for hepatitis C screening test; Preop examination; Routine screening for STI (sexually transmitted infection) Social History Tobacco UseTypesPacks/DayYears UsedDateSmoking Tobacco: NeverPassive Smoke Exposure: NeverSmokeless Tobacco: NeverAlcohol UseStandard Drinks/WeekComments Not Currently0 (1 standard drink = 0.6 oz pure alcohol)PHQ-2AnswerDate Recorded PHQ-2 Flekw539/05/2024CommentsNoSex and Gender InformationValueDate RecordedSex Assigned at BirthNot on fileLegal XywIiftgc24/02/2021 11:30 AM CDT Gender IdentityNot on fileSexual OrientationNot on filedocumented as of this encounter Plan of Treatment Not on file documented as of this encounter Procedures Procedure NamePriorityDate/TimeAssociated DiagnosisCommentsPREGNANCY TEST (URINE)Gcekbbc8701/04/2025 3:24 PM BASEBALL UMPIRE FOR LITTLE LEAGUE Preop examination CHLAMYDIA & GC, URINE (14 YEARS AND OLDER)Isksbfb8001/04/2025 3:20 PM BASEBALL UMPIRE FOR [employer]UE Routine screening for STI (sexually transmitted infection) HEMOGLOBIN, JCPRGTyjgjjl85/28/2025 3:20 PM BASEBALL UMPIRE FOR [employer]ITTLE [employer]AGUE Preop examination HEPATITIS C ANTIBODY, WITH REFLEX (ANTI-HCV)Rajqais5901/04/2025 3:20 PM BASEBALL UMPIRE FOR [employer]ITT[employer] Need for hepatitis C screening test documented in this encounter Results * Test (Urine) (01/04/2025 3:24 PM BASEBALL UMPIRE FOR [employer]ITTLE [employer]UE)ComponentValueRef RangeTest MethodAnalysis TimePerformed AtPathologist SignatureHCG, UrineNegativeNegative 01/04/2025 3:29 PM CSTDELRAY BEACH LABORATORYSpecimen (Source)Anatomical Location / LateralityCollection Method / VolumeCollection TimeReceived TimeUrineNon- blood Collection / Optotay0801/04/2025 3:24 PM CST01/04/2025 3:24 PM BASEBALL UMPIRE FOR [employer] Narrative Authorizing ProviderResult TypeResult StatusCojosefa Arroyo DOLAB_1Final Result Performing OrganizationAddressCity/State/ZIP CodePhone Number [facility] CLIA: [id number] [address] [place] [address] * Chlamydia & GC, Urine (14 Years and Older) (01/04/2025 3:20 PM BASEBALL UMPIRE FOR [employer])Component ValueRef RangeTest MethodAnalysis TimePerformed AtPathologist Signature Chlamydia Trachomatis STDNot DetectedNot Uclcnrhx74/29/2025 1:11 PM BASEBALL UMPIRE FOR [employer]ITTLE [employer]AG[employer] [facility]ORYN. gonorrhoeae STDNot DetectedNot Detected 01/05/2025 1:11 PM [facility] LABORATORYSpecimen (Source) Anatomical Location / LateralityCollection Method / VolumeCollection Time Received TimeUrine STDNon-blood Collection / Ndnedag3701/04/2025 3:20 PM BASEBALL UMPIRE FOR [employer] 01/04/2025 3:24 PM BASEBALL UMPIRE FOR [employer] Narrative [facility] - 01/05/2025 1:11 PM BASEBALL UMPIRE [employer] Test performed by Cherry Dipper Mediated Amplification (TMA). Authorizing ProviderResult TypeResult StatusComarlenitam Arroyo DOLAB_1Final Result Performing OrganizationAddressCity/State/ZIP CodePhone Number [facility] CLIA: [id number] [id number] [place] [address] * Hemoglobin, Blood (01/04/2025 3:20 PM BASEBALL UMPIRE FOR [employer])ComponentValueRef RangeTest Method Analysis TimePerformed AtPathologist EvlkfngpeXxgdwgyewl51.612.0 - 15.5 g/dL 01/04/2025 3:24 PM CSTDELRAY BEACH LABORATORYSpecimen (Source)Anatomical Location / LateralityCollection Method / VolumeCollection TimeReceived TimeBlood Venipuncture / Seowbpv6101/04/2025 3:20 PM CST01/04/2025 3:20 PM BASEBALL UMPIRE [employer] Narrative Authorizing ProviderResult TypeResult StatusCojosefa Arroyo DOLAB_1Final Result Performing OrganizationAddressCity/State/ZIP CodePhone Number [facility] CLIA: [id number] [address] [place] [address] * Hepatitis C Antibody, with Reflex (01/04/2025 3:20 PM BASEBALL UMPIRE FOR [employer])ComponentValueRef RangeTest MethodAnalysis TimePerformed AtPathologist SignatureHepatitis C AntibodyNegative (Non Reactive)Negative (Non Reactive)01/04/2025 7:14 PM BASEBALL UMPIRE FOR LITTLE LEAGUE [facility] LABORATORYComment:Antibodies to HCV not detected. Does not exclude the possiblity of exposure to HCV.Specimen (Source)Anatomical Location / LateralityCollection Method / VolumeCollection TimeReceived TimeBlood Venipuncture / Fhlrjla6601/04/2025 3:20 PM CST01/04/2025 3:20 PM BASEBALL UMPIRE [employer] Narrative Authorizing ProviderResult TypeResult StatusCojosefa Arroyo DOLAB_1Final Result Performing OrganizationAddressCity/State/ZIP CodePhone Number [facility] CLIA: [id number] [address] documented in this encounter Visit Diagnoses Diagnosis Need for hepatitis C screening test Special screening examination for other specified viral diseases Preop examination Preoperative examination, unspecified Routine screening for STI (sexually transmitted infection) Screening examination for venereal disease documented in this encounter Care Teams Team MemberRelationshipSpecialtyStart DateEnd Date Dariana Cantu, PRINCIPAL DATABASE DEVELOPER, CNC MILL PROGRAMMER [address] [place] [address] PCP - GeneralNurse Ddexrlmbyxmn06/6/24documented as of this encounter
--- OUTSIDE RECORDS SUMMARY | 2025-01-15 01:42 | XMS_ITS | Encounter Summary ---
Author Organization [facility] Address [address] [place] [address] Care Team Providers Care Solution Advisor Name Role Phone No Ref-Primary, Physician Primary Care Provider Reason for Visit * ReasonCommentsPost-op Problem Encounter Details DateTypeDepartmentCare Team (Latest Contact Info)Haxtuoxtqlv19/09/2025 1:42 AM EDUCATION DEPARTMENT CHAIR - 01/15/2025 1:49 AM CSTE[facility]ty[facility] [address] [place] [phone] Jamaal Garay MD [facility] [address] [place] [address] [place] [phone] Discharge Disposition: Home or Self Care Social History Tobacco UseTypesPacks/DayYears UsedDateSmoking Tobacco: NeverPassive Smoke Exposure: NeverSmokeless Tobacco: NeverAdolescent EducationAnswerDate Recorded Getting School Help NeededNot on file3CommentsUnknownSex and Gender InformationValueDate RecordedSex Assigned at BirthNot on fileLegal Sex Zbxnbs0208/07/2020 9:42 AM CDTGender IdentityNot on fileSexual OrientationNot on filedocumented as of this encounter Last Filed Vital Signs Vital SignReadingTime TakenCommentsBlood Pswclecx897/8701/14/2025 9:07 PM EDUCATION DEPARTMENT CHAIR Kimov87176/08/2025 9:07 PM RQSXthomcjtojt71.9 ??C (98.4 ??F)01/14/2025 9:07 PM CSTRespiratory Akyd846003/17/2024 9:07 PM CSTOxygen Cscvxliovv96%01/14/2025 9:07 PM CSTInhaled Oxygen Concentration--Xwpszp10.6 kg (122 lb 9.2 oz)01/14/2025 9:07 PM WCOSabnpx610.6 cm (5' 4)01/14/2025 9:07 PM CSTBody Mass Index21.04103/17/2024 9:07 PM CSTdocumented in this encounter Functional Status * Calculated C-SSRS Risk Score (Lifetime/Recent)AnswerDate of AssessmentAuthorNo Risk Ihizarjgy28/08/2025 9:07 PM Mei Jacques RN * [place] Suicide Severity Rating Scale (Screener/Recent Self-Report)Question AnswerDate [...] as needed for nausea or vomiting 12 1documented as of this encounter ED Notes * Seda Boone RN - 01/15/2025 1:49 AM CST Called pt to take to a room and pt is not in the lobby ATION DEPARTMENT CHAIR * Mei Cat RN - 01/14/2025 9:06 [...] WDL WDL Cognitive/Neuro/Behavioral WDL Cognitive/Neuro/Behavioral WDL WDL ATION DEPARTMENT CHAIR ATION DEPARTMENT CHAIR ATION DEPARTMENT CHAIR documented in this encounter Plan of Treatment Not on file documented as of this encounter Visit Diagnoses Not on filedocumented in this encounter Active and Recently Administered Medications Times are shown in EDUCATION DEPARTMENT CHAIR.Medication Order albuterol (PROVENTIL) neb solution 2.5 mg [...]
--- OUTSIDE RECORDS SUMMARY | 2025-01-16 13:40 | XMS_ITS | Encounter Summary ---
Author Organization [facility] Address [address] [address] Care Team Providers Care Senior Project Manager Engineering Name Role Phone Dariana Cantu APRN, CNP Primary Care Provide r Reason for Visit * ReasonCommentsVomiting Encounter Details DateTypeDepartmentCare Team (Latest Contact Info)Vodmfhcrtrs40/10/2025 1:40 PM CSTOffice Visit [place] [address] [facility] [address] [place] [address] Danielle Rahman PA-C [address] [place], [place] [id number] S/P tonsillectomy and adenoidectomy; Dehydration Social History Tobacco UseTypesPacks/DayYears UsedDateSmoking Tobacco: NeverPassive Smoke Exposure: NeverSmokeless Tobacco: NeverAlcohol UseStandard Drinks/WeekComments Not Currently0 (1 standard drink = 0.6 oz pure alcohol)PHQ-2AnswerDate Recorded PHQ-2 Twyat893/05/2024CommentsNoSex and Gender InformationValueDate RecordedSex Assigned at BirthNot on fileLegal CvoLujdme13/02/2021 11:30 AM CDT Gender IdentityNot on fileSexual OrientationNot on filedocumented as of this encounter Last Filed Vital Signs Vital SignReadingTime TakenCommentsBlood Vuyeorpm527/7101/16/2025 3:10 PM ORACLE BUSINESS INTELLIGENCE DEVELOPER Wvxyg930501/16/2025 3:10 PM RARQgxilqugsqy66.8 ??C (98.2 ??F)01/16/2025 1:41 PM CSTRespiratory Ryqq334403/19/2024 1:41 PM CSTOxygen Cvlkqstufh505%01/16/2025 1:41 PM CSTInhaled Oxygen Concentration--Weight--Height--Body Mass Index--documented in this encounter Progress Notes * Danielle Rahman PA-C - 01/16/2025 1:40 PM CSTAddended by: DANIELLE RAHMAN on: 01/16/2025 03:34 PM Modules accepted: Level of Service LE BUSINESS INTELLIGENCE DEVELOPER * Danielle Rahman PA-C - 01/16/2025 1:40 PM CST Patient ID: Shereen Sandoval Date of : 2005 SUBJECTIVE: History of Present Illness 19 year old female who had bilateral adenotonsillectomy on 01/11/2025. She states that she was struggling with pain control postoperatively was switched to [place] and does seem to be tolerating that better she was having a lot of vomiting in the postoperative period as well she was seen in the ED 36 hours ago but left after being triaged before being evaluated she was given Zofran and has not vomited since then. She has been trying to drink fluids but feels like she is having a hard time staying up with hydration status. Pain is adequately controlled with [place]. Last urination was around 10:30 p.m. last night. She is wondering if she would benefit from IV fluids. No fevers Past medical and surgical history: Problem List[1] Family History: Family History[2] Social History: Social History[3] Medications: HYDROcodone-acetaminophen, ondansetron, and tretinoin Allergies: Allergies Allergen Reactions Drug Ingredient [Latex] Rash Sulfa Antibiotics Rash Review of Systems: A complete review of systems is completed and negative except mentioned in HPI. OBJECTIVE: General: Appears well in no distress and hydration status is fair Vitals: Blood pressure 123/71, pulse 84, temperature 36.8 ??C (98.2 ??F), temperature source Oral, resp. rate 16, last menstrual period 12/21/2024, SpO2 100%, not currently . HEENT: EOM's intact. Nares patent. Oropharynx has scab formation without any bleeding consistent with recent tonsillectomy uvula is midline. No trismus. External auditory canals are without drainage. NECK: Full range of motion is noted. Supple, shotty bilateral anterior cervical lymphadenopathy PULMONARY: Normal air movement, no audible wheezes or crackles at this time. HEART: RR without murmur. Normal S1 and S2 ABDOMEN: Normal appearance. There is no abdominal tenderness present. MUSCULOSKELETAL: Normal strength normal range of motion in all extremities. NEURO: Cranial nerves 2-12 appear grossly intact, there are no focal deficits present. SKIN: [place] warm and dry without rashes. UC Course: Labs: Results for orders placed or performed in visit on 01/16/25 POC Chem 4 Panel, Urgent Care Only Result Value Ref Range Sodium, WB 139 136 - 145 mmol/L Potassium, Whole Blood 3.8 3.5 - 5.3 mmol/L Chloride, Whole Blood 101 98 - 109 mmol/L Carbon Dioxide, Whole Blood 25 22 - 31 mmol/L Anion Gap 13 6 - 16 mmol/L Performing Location LAB LA Creatinine/GFR, WB POC Result Value Ref Range Creatinine, Whole Blood 0.8 0.6 - 1.0 mg/dL Performing Location LAB LA GFR, Estimated >60 >60 mL/min/1.73m2 Complete Blood Count-W/Diff Result Value Ref Range WBC 12.6 (H) 3.5 - 10.5 x10(9)/L RBC 5.35 (H) 3.90 - 5.03 x10(12)/L Hemoglobin 16.0 (H) 12.0 - 15.5 g/dL HCT 49.3 (H) 34.9 - 44.5 % MCV 92.1 80.0 - 100.0 fL MCH 29.9 27.6 - 33.3 pg MCHC 32.5 31.5 - 35.2 g/dL RDW 11.6 (L) 11.9 - 15.5 % Platelets 286 150 - 450 x10(9)/L Neutrophil Absolute 10.0 (H) 1.7 - 7.0 10(9)/L Lymphocyte Absolute 1.5 1.0 - 4.8 10(9)/L Monocyte Absolute 0.8 0.2 - 0.9 10(9)/L Eosinophil Absolute 0.1 0.0 - 0.5 10(9)/L Basophil Absolute 0.1 0.0 - 0.3 10(9)/L Immature Granulocyte % 0.2 0.0 - 0.5 % ASSESSMENT: Diagnoses of S/P tonsillectomy and adenoidectomy and Dehydration were pertinent to thisvisit. PLAN: Patient is seen and evaluated here in clinic. Patient was given 1 L of LR and did have improvement of symptoms plan is to discharge home continuing Zofran and [place] for nausea and pain control. Discussed frequent sips of fluids or using ice chips for hydration status. Would anticipate slow improvement of symptoms over the next couple of days. Lab work was checked today and does show normal creatinine and electrolytes. CBC did show a mildly elevated white count and neutrophil count likely secondary to surgery no signs of infection at this time. Follow up with primary care physician in 3 - 5 days or sooner if symptoms worsen. May return here or go to the ER if worsening or concerns. Call hereif any concerns whatsoever. [1] Patient Active Problem List Diagnosis Anxiety (HRC) Depression Nonintractable headache Acne Eating disorder Neck pain PTSD (post-traumatic stress disorder) (HRC) Tonsillar hypertrophy [2] Family History Problem Relation Name Age of Onset Anxiety Mother Other (narcissistic personality disorder) Father Anxiety Sister Thyroid Disorder Paternal Grandmother Bleeding Disorder Negative Family History Thromboembolic Disease Negative Family History [3] Social History Tobacco Use Smoking status: Never Passive exposure: Never Smokeless tobacco: Never Vaping Use Vaping status: Never Used Substance Use Topics Alcohol use: Not Currently Drug use: Yes Frequency: 4.0 times per week Types: Marijuana LE BUSINESS INTELLIGENCE DEVELOPER documented in this encounter Nursing Notes * Abner Pham - 01/16/2025 1:40 PM CST Shereen Sandoval is a 19 y.o.female presents to the Urgent Care for Vomiting Pt had tonsillectomy 5 days ago. Was vomiting afterwards. Says she was seen in the ER at [facility] yesterday and given fluids and Zofran. Pt's provider wanted her seen due to not urinating for 24 hours. Patient requests an excuse letter for work/school: No LE BUSINESS INTELLIGENCE DEVELOPER LE BUSINESS INTELLIGENCE DEVELOPER documented in this encounter Plan of Treatment Not on file documented as of this encounter Procedures Procedure NamePriorityDate/TimeAssociated DiagnosisCommentsCHEM 4 PANEL POCTSTAT 01/16/2025 2:17 PM ORACLE BUSINESS INTELLIGENCE DEVELOPER Dehydration CBC AND DIFFERENTIAL MHOAITSIJ19/10/2025 2:17 PM ORACLE BUSINESS INTELLIGENCE DEVELOPER Dehydration CREATININE/GFR, WB OOWZHTI5001/16/2025 2:17 PM ORACLE BUSINESS INTELLIGENCE DEVELOPER Dehydration COMPLETE BLOOD COUNT-W/KUDBPWRF93/10/2025 2:17 PM ORACLE BUSINESS INTELLIGENCE DEVELOPER Dehydration documented in this encounter Results * (ABNORMAL) Complete Blood Count-W/Diff (01/16/2025 2:17 PM ORACLE BUSINESS INTELLIGENCE DEVELOPER)ComponentValue Ref RangeTest MethodAnalysis TimePerformed AtPathologist QubcjhlltNSA71.6(H) 3.5 - 10.5 x10(9)/L103/19/2024 2:36 PM [facility] LABORATORYRBC5.35(H)3.90 - 5.03 x10(12)/L103/19/2024 2:36 PM [facility] QLYMQQMXLTYjssxxqsgp73.0(H)12.0 - 15.5 g/dL01/16/2025 2:36 PM [facility] WBAPSWHEWYEZL92.3(H)34.9 - 44.5 % 01/16/2025 2:36 PM [facility] HDVLOSYPQHKHI21.180.0 - 100.0 fL01/16/2025 2:36 PM [facility] CPGYXEVALNGXC01.927.6 - 33.3 pg01/16/2025 2:36 PM [facility] CFCHXURXQEHKOI28.531.5 - 35.2 g/dL01/16/2025 2:36 PM [facility] JPBKQTVYVYUXE19.6(L)11.9 - 15.5 %01/16/2025 2:36 PM [facility] Vbzpzhneu664293 - 450 x10(9)/L103/19/2024 2:36 PM [facility] Neutrophil Oaaehwox12.0(H)1.7 - 7.0 10(9)/L103/19/2024 2:36 PM [facility] LABORATORYLymphocyte Absolute1.51.0 - 4.8 10(9)/L103/19/2024 2:36 PM [facility] LABORATORYMonocyte Absolute0.80.2 - 0.9 10(9)/L103/19/2024 2:36 PM [facility] LABORATORYEosinophil Absolute0.10.0 - 0.5 10(9)/L103/19/2024 2:36 PM [facility] LABORATORYBasophil Absolute0.10.0 - 0.3 10(9)/L103/19/2024 2:36 PM [facility] LABORATORYImmature Granulocyte %0.20.0 - 0.5 %01/16/2025 2:36 PM [facility] LABORATORYSpecimen (Source)Anatomical Location / Laterality Collection Method / VolumeCollection TimeReceived TimeBloodVenipuncture / Lgfyjte3301/16/2025 2:17 PM CST01/16/2025 2:34 PM ORACLE BUSINESS INTELLIGENCE DEVELOPER Narrative Authorizing ProviderResult TypeResult StatusLisa Avery HESTER-TRAMAINE_1Final Result Performing OrganizationAddressCity/State/ZIP CodePhone Number [facility] CLIA: [id number] [place] [address], [facility] * Creatinine/GFR, WB POC (01/16/2025 2:17 PM ORACLE BUSINESS INTELLIGENCE DEVELOPER)ComponentValueRef RangeTest MethodAnalysis TimePerformed AtPathologist SignatureCreatinine, Whole Blood0.8 0.6 - 1.0 mg/dL01/16/2025 2:40 PM [facility] LABORATORYPerforming Location LAB LA01/16/2025 2:40 PM [facility] LABORATORYGFR, Estimated>60>60 mL/min/1.18b55401/16/2025 2:40 PM [facility] LABORATORYSpecimen (Source) Anatomical Location / LateralityCollection Method / VolumeCollection Time Received TimeBloodVenipuncture / Jbbkokr9501/16/2025 2:17 PM CST01/16/2025 2:34 PM ORACLE BUSINESS INTELLIGENCE DEVELOPER Narrative Authorizing ProviderResult TypeResult StatusLisa A Josiah PA-CLAB_1Final Result Performing OrganizationAddressCity/State/[facility] CodePhone Number [facility] CLIA: [id number] [address] [place] [address], [facility] * POC Chem 4 Panel, Urgent Care Only (01/16/2025 2:17 PM ORACLE BUSINESS INTELLIGENCE DEVELOPER)ComponentValueRef RangeTest MethodAnalysis TimePerformed AtPathologist SignatureSodium, [id number] - 145 mmol/L103/19/2024 2:40 PM [facility] LABORATORYPotassium, Whole Blood 3.83.5 - 5.3 mmol/L103/19/2024 2:40 PM [facility] LABORATORYChloride, Whole Enzrt91444 - 109 mmol/L103/19/2024 2:40 PM [facility] LABORATORYCarbon Dioxide, Whole Ndyrv8570 - 31 mmol/L103/19/2024 2:40 PM [facility] Anion Qxe097 - 16 mmol/L103/19/2024 2:40 PM [facility] LABORATORYPerforming LocationLAB LA01/16/2025 2:40 PM [facility] LABORATORYSpecimen (Source) Anatomical Location / LateralityCollection Method / VolumeCollection Time Received TimeBloodVenipuncture / Nkqunzq8901/16/2025 2:17 PM CST01/16/2025 2:34 PM ORACLE BUSINESS INTELLIGENCE DEVELOPER Narrative Authorizing ProviderResult TypeResult StatusLisa Avery Rahman PA-CLAB_1Final Result Performing OrganizationAddressCity/[facility]/ZIP CodePhone Number [facility] CLIA: [id number] [address] [place] [address], [facility] documented in this encounter Visit Diagnoses Diagnosis S/P tonsillectomy and adenoidectomy Other postprocedural status Dehydration documented in this encounter Administered Medications Medication OrderMAR ActionAction DateDoseRateSite LACTATED RINGERS IV SOLUTION (AMB) 1,000 mL 1,000 mL, Intravenous, ONCE, On Tue01/16/25 at 1430, For 1 dose Indications:NxvutlpwztsTddoazn91/10/2025 2:25 PM CST1,000 mLdocumented in this encounter Care Teams Team MemberRelationshipSpecialtyStart DateEnd Date Dariana Cantu, ORDER CHECKER, AWS SOLUTION ARCHITECT [address] [place] [address] PCP - GeneralNurse Avymllmtdpns76/6/24documented as of this encounter
--- OUTSIDE RECORDS SUMMARY | 2025-01-16 19:21 | XMS_ITS | Encounter Summary ---
Author Organization [facility] Address [address] [address] Care Team Providers Care Professor/Nurse Anesthetist Name Role Phone Dariana Cantu APRN, CNP Primary Care Provide r Encounter Details DateTypeDepartmentCare Team (Latest Contact Info)Hdazslqfgkk01/01/2025Results Follow-Up [place] [address] [facility] [address] [place] [phone] [place] [address] [place] [address] Social History Tobacco UseTypesPacks/DayYears UsedDateSmoking Tobacco: NeverPassive Smoke Exposure: NeverSmokeless Tobacco: NeverAlcohol UseStandard Drinks/WeekComments Not Currently0 (1 standard drink = 0.6 oz pure alcohol)PHQ-2AnswerDate Recorded PHQ-2 Ngdbf054/05/2024CommentsNoSex and Gender InformationValueDate RecordedSex Assigned at BirthNot on fileLegal PzhTahhie67/02/2021 11:30 AM CDT Gender IdentityNot on fileSexual OrientationNot on filedocumented as of this encounter Plan of Treatment Not on file documented as of this encounter Visit Diagnoses Not on filedocumented in this encounter Care Teams Team MemberRelationshipSpecialtyStart DateEnd Date Dariana Cantu APRN, CNP [address] [place] [address] PCP - GeneralNurse Hrnzjttmouts13/6/24documented as of this encounter
--- OUTSIDE RECORDS SUMMARY | 2025-01-16 19:21 | XMS_ITS | Clinical Summary ---
Author Organization [facility] Address [address] [address] Care Team Providers Care Airplane Designer Name Role Phone Dariana Cantu APRN, CNP Primary Care Provide r Source Comments You are receiving this document as you are listed as the primary care provider,follow-up provider, or the patient has been referred to you for consultation.This is in compliance with the Medicare and[facility] Hospitalcaid EHR Incentive Program,which states Providers who transition their patient to another setting of careor provider of care or refers their patient to another provider of care shouldprovide summary care record for each transition of care or referral. [facility] Allergies Active AllergyReactionsCriticalityNoted HemvPctdmvebOrtnfFbhaJqoc22/13/2021ulfa PdaxkmhvqldEjrb79/13/2021 Medications MedicationSigDispense QuantityRefillsLast FilledStart DateEnd DateStatus tretinoin (RETIN-A) 0.05 % cream Indications:Acne vulgarisApply topically every evening. 45 g 11065Active HYDROcodone-acetaminophen (NORCO) 5-325 MG tablet Take 1 Tablet by mouth every 4 hours as needed.5Active ondansetron (ZOFRAN) 8 MG tablet Take 1 Tablet (8 mg) by mouth every 8 hours as needed.5ActiveHospital, Clinic, or Other Facility Administered MedicationOrdered DoseRouteFrequencyStart DateEnd DateStatus LACTATED RINGERS IV SOLUTION (AMB) 1,000 mL Indications:Hbqgsvrllrc2028 zWXWUQQN81/10/501452/11/2024Ended Active Problems ProblemNoted DateDiagnosed DateTonsillar ivmyakzviaq76/19/2025 Assessment & Plan (09/25/2024 8:22 AM CDT): Given the sleep disruption, recurrent sore throats and missed working days, we will send to ENT forfurther evaluation and consideration of tonsillectomy and possible adenoidectomy. Orders: Otolaryngology Consult Adult/Peds Eating bozeozwy37/31/2023Neck pain03/09/2022TSD (post-traumatic stress disorder)03/09/2022Acne04/06/20210605Yzrabec25/22/1099Wmwyjxpmrt32/22/2021 Nonintractable /22/2021 Resolved Problems ProblemNoted DateDiagnosed DateResolved EzqjVbnrucf67Vomiting /1735Ukdsgllg12/22/202101/bnormal weight loss11/28/2020 03/09/2022 Encounters DateTypeDepartmentCare VrwjYhngzrkrpgo80/10/2025 1:40 PM CSTOffice Visit [facility] [address] [facility] [address] [place] [phone] Danielle Rahman PA-C S/P tonsillectomy and adenoidectomy; Estswmwqiln53/01/2025Results Follow-Up [place] [address] [facility] [address] [place] [phone] Zuleyka Arroyo DO 01/04/2025 3:20 PM CSTLab Visit [facility] [address] [place] [phone] Need for hepatitis C screening test; Preop examination; Routine screening for STI (sexually transmitted infection)01/04/2025 3:00 PM BATTERY CONTAINER TESTER ALUMINUM Pre-Op Visit [place] [address] [facility] [address] [place] [phone] Zuleyka Arroyo DO Preop examination (Primary Dx); Tonsillar hypertrophy; Routine screening for STI (sexually transmitted infection); Need for hepatitis C screening testfrom Last 3 Months Immunizations ImmunizationAdministration DatesNext RlaVOkL-NtxO-TEG (Pediarix)11/22/2006Hib (ActHIB)11/22/2006Influenza IIV4 (Quadrivalent) 0.5mL (61796)01/04/2022MMR 11/22/2006Pneumococcal 7, PED11/22/20061910Strajdecl26/16/2007 Family History Medical HistoryRelationNameCommentsnarcissistic personality disorderBirth Father AnxietyBirth MotherThyroid DisorderPaternal GrandmotherAnxietySisterBleeding DisorderNegative Family HistoryThromboembolic DiseaseNegative Family History RelationNameStatusCommentsBirth FatherBirth MotherPaternal GrandmotherSister Alive Social History Tobacco UseTypesPacks/DayYears UsedDateSmoking Tobacco: NeverPassive Smoke Exposure: NeverSmokeless Tobacco: Never Tobacco Cessation:Counseling Given: No Alcohol UseStandard Drinks/WeekCommentsNot Currently0 (1 standard drink = 0.6 oz pure alcohol)PHQ-2AnswerDate RecordedPHQ-2 Esvee032/05/2024CommentsNoSex and Gender InformationValueDate RecordedSex Assigned at BirthNot on fileLegal PymCtcoky41/02/2021 11:30 AM CDTGender IdentityNot on fileSexual OrientationNot on file Last Filed Vital Signs Vital SignReadingTime TakenCommentsBlood Ncixjyqc939/7101/16/2025 3:10 PM BATTERY CONTAINER TESTER ALUMINUM Xnqkw302601/16/2025 3:10 PM SYOFzaaqndoyvk55.8 ??C (98.2 ??F)01/16/2025 1:41 PM CSTRespiratory Xtxt355103/19/2024 1:41 PM CSTOxygen Lnrefpezcd079%01/16/2025 1:41 PM CSTInhaled Oxygen Concentration--Kuwail37.1 kg (128 lb)01/04/2025 2:55 PM BATTERY CONTAINER TESTER ALUMINUM Qcrioj898.2 cm (5' 4.25)01/04/2025 2:55 PM CSTBody Mass Index21.8103/06/2024 2:55 PM BATTERY CONTAINER TESTER ALUMINUM Plan of Treatment Health MaintenanceDue DateLast DoneCommentsMenB Immunization Discussion 2004HepB Vaccine (2)IPV (Polio) Vaccine (2 of 3 - 4- dose series)Varicella Vaccine (2 of 2 - 2-dose childhood series)HPV Vaccine (1 - 3-dose series)2019MCV4 Vaccine (1 - 2-dose series)2020dult Preventive Visit/ DTaP/Tdap/Td Vaccine (2 - Tdap)COVID-19 Vaccine (1 - 2024- season)2024Influenza Vaccine (#1)511/0105Yxcdrnkpe48/28/2026 01/04/2025, 01/12/2024, 6299Qlsi15/13/991196/Zoster/Shingles Vaccine (1 of 2)2054Hib CynhingOdqjmafhx20/16/2007Pneumococcal VaccineAged Out11/22/2006No longer eligible based on patient's age to complete this topicHIV Screening (Preventive Services)Pcjqtgwao15/05/2024Tuberculosis Screening Kbjzdgrjc21/05/2024Hep C Screening (Preventive Services)Csdgoiwlw73/28/2025HepA VaccineAged OutNo longer eligible based on patient's age to complete this topic Procedures Procedure NamePriorityDate/TimeAssociated DiagnosisCommentsCOMPLETE BLOOD COUNT-W/DZRPNFDE97/10/2025 2:17 PM BATTERY CONTAINER TESTER ALUMINUM Dehydration CREATININE/GFR, WB UMRDVQY1301/16/2025 2:17 PM BATTERY CONTAINER TESTER ALUMINUM Dehydration CHEM 4 PANEL FQXTWWYM11/10/2025 2:17 PM BATTERY CONTAINER TESTER ALUMINUM Dehydration CBC AND DIFFERENTIAL IVCJMWFNN98/10/2025 2:17 PM BATTERY CONTAINER TESTER ALUMINUM Dehydration TEST (URINE)Grxlatx7101/04/2025 3:24 PM BATTERY CONTAINER TESTER ALUMINUM Preop examination CHLAMYDIA & GC, URINE (14 YEARS AND OLDER)Bmugvgk8501/04/2025 3:20 PM BATTERY CONTAINER TESTER ALUMINUM Routine screening for STI (sexually transmitted infection) HEPATITIS C ANTIBODY, WITH REFLEX (ANTI-HCV)Bqpnqzu4701/04/2025 3:20 PM BATTERY CONTAINER TESTER ALUMINUM Need for hepatitis C screening test HEMOGLOBIN, TCSTNBotoada82/28/2025 3:20 PM BATTERY CONTAINER TESTER ALUMINUM Preop examination DXA BONE DENSITY SPINE/AWMEakzsqc77/13/2025 10:44 AM CDT Other closed fracture of proximal end of right tibia, initial encounter Osteopenia, unspecified location TB QUANTIFERON GOLD ENMMRjebosv37/05/2024 3:07 PM BATTERY CONTAINER TESTER ALUMINUM Lymphadenopathy HIV 1/2 AG/AB 4TH EMFQdsrwnh84/05/2024 3:07 PM BATTERY CONTAINER TESTER ALUMINUM Lymphadenopathy from Last 3 Months or Most Recently Relevant to Health Maintenance Results * POC Chem 4 Panel, Urgent Care Only (01/16/2025 2:17 PM BATTERY CONTAINER TESTER ALUMINUM)ComponentValueRef RangeTest MethodAnalysis TimePerformed AtPathologist SignatureSodium, MT972102 - 145 mmol/L103/19/2024 2:40 PM [facility]ORATORYPotassium, Whole Blood 3.83.5 - 5.3 mmol/L103/19/2024 2:40 PM [facility]ORYChloride, Whole Advov32502 - 109 mmol/L103/19/2024 2:40 PM [facility]ORATORYCarbon Dioxide, Whole Qynss6337 - 31 mmol/L103/19/2024 2:40 PM [facility] Anion Ldo096 - 16 mmol/L103/19/2024 2:40 PM [facility] LABORATORYPerforming LocationLAB LA01/16/2025 2:40 PM [facility] LABORATORYSpecimen (Source) Anatomical Location / LateralityCollection Method / VolumeCollection Time Received TimeBloodVenipuncture / Kvgadts3101/16/2025 2:17 PM CST01/16/2025 2:34 PM BATTERY CONTAINER TESTER ALUMINUM Narrative Authorizing ProviderResult TypeResult StatusLisa A Weniger PA-CLAB_1Final Result Performing OrganizationAddressCity/State/ZIP CodePhone Number [facility] CLIA: [id number] [place] [address] * Creatinine/GFR, WB POC (01/16/2025 2:17 PM BATTERY CONTAINER TESTER ALUMINUM)ComponentValueRef RangeTest MethodAnalysis TimePerformed AtPathologist SignatureCreatinine, Whole Blood0.8 0.6 - 1.0 mg/dL01/16/2025 2:40 PM [facility]ATORYPerforming Location LAB LA01/16/2025 2:40 PM [facility] LABORATORYGFR, Estimated>60>60 mL/min/1.39i16001/16/2025 2:40 PM [facility] LABORATORYSpecimen (Source) Anatomical Location / LateralityCollection Method / VolumeCollection Time Received TimeBloodVenipuncture / Ettrurn9001/16/2025 2:17 PM CST01/16/2025 2:34 PM BATTER[employer] CONTAINER TE[employer] ALUMINUM Narrative Authorizing ProviderResult TypeResult StatusLisa A Weniger PA-CLAB_1Final Result Performing OrganizationAddressCity/State/ZIP CodePhone Number [facility] CLIA: [id number] [phone] [place] [address], [facility] * (ABNORMAL) Complete Blood Count-W/Diff (01/16/2025 2:17 PM BATTERY CONTAINER TESTER ALUMINUM)ComponentValue Ref RangeTest MethodAnalysis TimePerformed AtPathologist NpwijmbvpVPC05.6(H) 3.5 - 10.5 x10(9)/L103/19/2024 2:36 PM [facility] LABORATORYRBC5.35(H)3.90 - 5.03 x10(12)/L103/19/2024 2:36 PM [facility] BEICQNVHMKUdqlyjyrjn90.0(H)12.0 - 15.5 g/dL01/16/2025 2:36 PM [facility] LGOBAQRXQDHAT73.3(H)34.9 - 44.5 % 01/16/2025 2:36 PM [facility] XLWSRBKGAHKMZ75.180.0 - 100.0 fL01/16/2025 2:36 PM [facility] HVYWIUPMDYUNQ27.927.6 - 33.3 pg01/16/2025 2:36 PM [facility]ITALMCHC32.531.5 - 35.2 g/dL01/16/2025 2:36 PM [facility] GMZPZXEVJTZIB86.6(L)11.9 - 15.5 %01/16/2025 2:36 PM [facility] Llkaacyig828802 - 450 x10(9)/L103/19/2024 2:36 PM [facility] Neutrophil Kcrtsjfu83.0(H)1.7 - 7.0 10(9)/L103/19/2024 2:36 PM [facility]ymphocyte Absolute1.51.0 - 4.8 10(9)/L103/19/2024 2:36 PM [facility] LAB[facility]ATORYMonocyte Absolute0.80.2 - 0.9 10(9)/L103/19/2024 2:36 PM [facility] LABORATORYEosinophil Absolute0.10.0 - 0.5 10(9)/L103/19/2024 2:36 PM [facility] LABORATORYBasophil Absolute0.10.0 - 0.3 10(9)/L103/19/2024 2:36 PM [facility]ITALImmature Granulocyte %0.20.0 - 0.5 %01/16/2025 2:36 PM [facility] LABORATORYSpecimen (Source)Anatomical Location / Laterality Collection Method / VolumeCollection TimeReceived TimeBloodVenipuncture / Zoqfqls6601/16/2025 2:17 PM CST01/16/2025 2:34 PM [employer] CONTAINER TE[employer]UMIN[employer] Narrative Authorizing ProviderResult TypeResult StatusLisa Avery ECHOLS_1Final Result Performing OrganizationAddressCity/State/ZIP CodePhone Number [facility] CLIA: [id number] [place] [address], [facility] * Test (Urine) (01/04/2025 3:24 PM BATTERY CONTAINER TESTER ALUMINUM)ComponentValueRef RangeTest MethodAnalysis TimePerformed AtPathologist SignatureHCG, UrineNegativeNegative 01/04/2025 3:29 PM CSTR[facility]ATORYSpecimen (Source)Anatomical Location / LateralityCollection Method / VolumeCollection TimeReceived TimeUrineNon- blood Collection / Dttnnsu5601/04/2025 3:24 PM CST01/04/2025 3:24 PM BATTER[employer] CONTAINER TE[employer]INUM Narrative Authorizing ProviderResult TypeResult StatusCojosefa Arroyo DOLAB_1Final Result Performing OrganizationAddressCity/State/ZIP CodePhone Number [facility] CLIA: [id number] [address] [place] [address] * Chlamydia & GC, Urine (14 Years and Older) (01/04/2025 3:20 PM BATTERY CONTAINER TESTER ALUMINUM)Component ValueRef RangeTest MethodAnalysis TimePerformed AtPathologist Signature Chlamydia Trachomatis STDNot DetectedNot Iofjeyqw57/29/2025 1:11 PM BATTERY CONTAINER TESTER ALUMINUM [facility] LABORATORYN. gonorrhoeae STDNot DetectedNot Detected 01/05/2025 1:11 PM CSTSTE[facility] LABORATORYSpecimen (Source) Anatomical Location / LateralityCollection Method / VolumeCollection Time Received TimeUrine STDNon-blood Collection / Dtcyfka3801/04/2025 3:20 PM BATTERY CONTAINER TESTER ALUMINUM 01/04/2025 3:24 PM BATTERY CONTAINER TESTER ALUMINUM Narrative [facility] - 01/05/2025 1:11 PM BATTERY CONTAINER TE[employer] ALUMINUM Test performed by Search Lead Mediated Amplification (TMA). Authorizing ProviderResult TypeResult StatusCojosefa Arroyo DOLAB_1Final Result Performing OrganizationAddressCity/State/ZIP CodePhone Number [facility] CLIA: [id number] [address] [place] [id number] [place] [address] * Hemoglobin, Blood (01/04/2025 3:20 PM BATTERY CONTAINER TE[employer] ALUMINUM)ComponentValueRef RangeTest Method Analysis TimePerformed AtPathologist VnqwjwgzxGkmnlzggpr75.612.0 - 15.5 g/dL 01/04/2025 3:24 PM CSTRHOADES[facility]ILLE LABORATORYSpecimen (Source)Anatomical Location / LateralityCollection Method / VolumeCollection TimeReceived TimeBlood Venipuncture / Xifupke0601/04/2025 3:20 PM CST01/04/2025 3:20 PM BATTER[employer] CONTAINER TE[employer]UMINUM Narrative Authorizing ProviderResult TypeResult StatusCojosefa Arroyo DOLAB_1Final Result Performing OrganizationAddressCity/State/ZIP CodePhone Number [facility] CLIA: [id number] [phone] [place] [address] * Hepatitis C Antibody, with Reflex (01/04/2025 3:20 PM BATTERY CONTAINER TE[employer] ALUMINUM)ComponentValueRef RangeTest MethodAnalysis TimePerformed AtPathologist SignatureHepatitis C AntibodyNegative (Non Reactive)Negative (Non Reactive)01/04/2025 7:14 PM BATTERY CONTAINER TESTER ALUMINUM [facility] LABORATORYComment:Antibodies to HCV not detected. Does not exclude the possiblity of exposure to HCV.Specimen (Source)Anatomical Location / LateralityCollection Method / VolumeCollection TimeReceived TimeBlood Venipuncture / Mtdpdjs6201/04/2025 3:20 PM CST01/04/2025 3:20 PM BATTERY CONTAINER TE[employer] ALUMINUM Narrative Authorizing ProviderResult TypeResult StatusCojosefa Arroyo DOLAB_1Final Result Performing OrganizationAddressCity/State/ZIP CodePhone Number [facility] CLIA: [id number] [address] [place], [place] [address] * DXA Bone Density Spine/Hip (04/19/2024 10:44 AM CDT)ComponentValueRef Range Test MethodAnalysis TimePerformed AtPathologist SignatureDXA Lumbar Spine Bone Mineral Density1.019gm/hn8UGWMNPZI RESULTSDXA Lumbar Spine Z-Score0.0EXTERNAL RESULTSDXA Hip Left Bone Mineral Density1.007gm/cf4ETBYKXIT RESULTSDXA Hip Right Bone Mineral Density0.992gm/ts2FQPUYKMD RESULTSDXA Hip Left Z-Score0.5 EXTERNAL RESULTSDXA Hip Right Z-Score0.4EXTERNAL RESULTSDXA Femur Left Bone Mineral Density0.944gm/au6CBYHXRVO RESULTSDXA Femur Right Bone Mineral Density 0.911gm/fz3IXWSVBZW RESULTSDXA Femur Left Z-Score0.9EXTERNAL RESULTSDXA Femur Right Z-Score0.6EXTERNAL RESULTSAnatomical RegionLateralityModalityLower Extremity, Spine, Hip, L-SpineOtherSpecimen (Source)Anatomical Location / LateralityCollection Method / VolumeCollection TimeReceived Time Narrative 04/20/2024 2:30 PM CDT Table formatting from the original result was not included. Patient Name: Shereen Harvey Densitometer: [employer] DISCOVERY A Appt Dept/Resource: Tria Bone [...] trabecular bone, and is derived from the ccgbj-ej-faphz changes of bone density embedded in the [...] 1/2 Ag/Ab 4th Generation (01/12/2024 3:07 PM BATTERY CONTAINER TESTER ALUMINUM)ComponentValueRef Range Test MethodAnalysis TimePerformed AtPathologist SignatureHIV 1/2 Antigen/Antibody (4th generation)Negative (Non Reactive)Negative (Non Reactive)01/12/2024 8:55 PM CSTMETHODIST LABORATORYComment:HIV-1 p24 Antigen and HIV-1/HIV-2 Antibody not detectedSpecimen (Source)Anatomical Location / LateralityCollection Method / VolumeCollection TimeReceived TimeBlood Venipuncture / Tvsejhw0301/12/2024 3:07 PM CST01/12/2024 3:07 PM BATTER[employer] CONTAINER TE[employer]INUM Narrative Authorizing ProviderResult TypeResult StatusJennyoly Cantu APRN, CNPLAB_1Final ResultPerforming OrganizationAddressCity/State/ZIP CodePhone Number [facility] [address] from Last 3 Months or Most Recently Relevant to Health Maintenance Insurance Care Teams Team MemberRelationshipSpecialtyStart DateEnd Date Dariana Cantu, PLUMBING MECHANIC, AUDIT MGR [address] [place] [address] PCP - GeneralNurse Icgscxncojii83/6/24
--- OUTSIDE RECORDS SUMMARY | 2025-01-16 19:21 | XMS_ITS | Clinical Summary ---
Author Organization [place] Address [address] [place] [address] Care Team Providers Care Motion Picture Photographer Name Role Phone No Ref-Primary, Physician Primary Care Provider Allergies Active AllergyReactionsCriticalityNoted JfoiPhnrdunpRmrcyEqano16/01/2021ulfa EtxurxvzzpfCaggn46/01/2021 Medications MedicationSigDispense QuantityRefillsLast FilledStart DateEnd DateStatus ondansetron (ZOFRAN ODT) 4 MG ODT tab Take 1 tablet (4 mg) by mouth every 6 hours as needed for nausea or vomiting 12 tablet 08/07/2020ctive Additional Information Patient not taking.Reported on 12/06/2023 Encounters DateTypeDepartmentCare LosqVziltodoyex18/09/2025 1:42 AM LANDING SIGNAL OFFICER - 01/15/2025 1:49 AM [facility] [address] [place] [address] [phone] Jamaal Garay MD Discharge Disposition: Home or Self Care01/14/2025Travelfrom Last 3 Months Social History Tobacco UseTypesPacks/DayYears UsedDateSmoking Tobacco: NeverPassive Smoke Exposure: NeverSmokeless Tobacco: Never Tobacco Cessation:Counseling Given: Not Answered Adolescent EducationAnswerDate RecordedGetting School Help NeededNot on file 3CommentsUnknownSex and Gender InformationValueDate RecordedSex Assigned at BirthNot on fileLegal UbnFtudqo08/01/2021 9:42 AM CDTGender Identity Not on fileSexual OrientationNot on file Last Filed Vital Signs Vital SignReadingTime TakenCommentsBlood Gxfmggoz043/8712 9:07 PM LANDING SIGNAL OFFICER Szazs85394/08/2025 9:07 PM IIMUowarcrzgdp07.9 ??C (98.4 ??F)01/14/2025 9:07 PM CSTRespiratory Hfch582103/17/2024 9:07 PM CSTOxygen Pbbmyxaqxy62%01/14/2025 9:07 PM CSTInhaled Oxygen Concentration--Nspsee41.6 kg (122 lb 9.2 oz)01/14/2025 9:07 PM MCVHclzxt024.6 cm (5' 4)01/14/2025 9:07 PM CSTBody Mass Index21.04103/17/2024 9:07 PM LANDING SIGNAL OFFICER Plan of Treatment Health MaintenanceDue DateLast DoneCommentsADVANCE CARE CWZZVTRA53/17/2005ANNUAL REVIEW OF HM ADEJOE25 2004CHLAMYDIA FCPPWIYUS21/17/2005HEPATITIS B VACCINE (2 of 3 - 3-dose series)YEARLY PREVENTIVE VISIT2007 DTAP/TDAP/TD VACCINE (2 - Tdap)HPV VACCINE (1 - 3-dose series)2019MENINGITIS B VACCINE (1 of 2 - Standard)2020HQ-2 (once per calendar year)2024OVID-19 VACCINE (1 - season)2024 INFLUENZA VACCINE (#1)ZOSTER VACCINE (1 of 2)2054 PNEUMOCOCCAL VACCINE: PEDIATRICS (0 to 5 YEARS) AND AT-RISK PATIENTS (6 to 49 YEARS)Aged Out11/22/2006No longer eligible based on patient's age to complete this topicHIV MGGSLBFCQIjyidjjrr09/05/2024HEPATITIS C SCREENINGCompleted 01/04/2025MENINGITIS VACCINEAged OutNo longer eligible based on patient's age to complete this topic Insurance Care Teams Team MemberRelationshipSpecialtyStart DateEnd Date No Ref-Primary, Physician PCP - General08/07/20
--- OUTSIDE RECORDS SUMMARY | 2025-01-16 19:22 | XMS_ITS | Encounter Summary ---
Author Organization [place] Address [address] [place] [address] Care Team Providers Care Electric Deicer Assembler Name Role Phone No Ref-Primary, Physician Primary Care Provider Encounter Details DateTypeDepartmentCare Team (Latest Contact Info)Fzzogfwwclf40/08/2025Travel Social History Tobacco UseTypesPacks/DayYears UsedDateSmoking Tobacco: NeverPassive Smoke Exposure: NeverSmokeless Tobacco: NeverAdolescent EducationAnswerDate Recorded Getting School Help NeededNot on file3CommentsUnknownSex and Gender InformationValueDate RecordedSex Assigned at BirthNot on fileLegal Sex Swhhwp1708/07/2020 9:42 AM CDTGender IdentityNot on fileSexual OrientationNot on filedocumented as of this encounter Functional Status * Calculated C-SSRS Risk Score (Lifetime/Recent)AnswerDate of AssessmentAuthorNo Risk Tkqpdyzuz73/08/2025 9:07 PM Mei Jacques RN * [place] Suicide Severity Rating Scale (Screener/Recent Self-Report)Question AnswerDate [...]
--- NOTE | 2025-01-16 19:27 | ED.GENADULT ---
HPI - General Adult General Time Seen by Provider: 19:27 Date Seen: 01/16/25 Chief complaint: Post Op Complication Stated complaint: Post surgery on tonsils, throat wont stop bleeding Time Seen by Provider: 01/16/25 19:28 Source: patient and RN notes reviewed Mode of arrival: ambulatory Limitations: no limitations History of Present Illness HPI narrative: This 19-year-old female is coming to the ER with bleeding from the right tonsillar base that started about an hour ago. She just coughed and then states had a lot of blood,. She has been coughing up little small clots. She has noted no fevers or chills. She had outpatient tonsillectomy at [facility] on Tuesday. She has some nausea right now, thinks that this is from being hungry. Tonsillectomy indication was reported to be for recurrent throat infections after illness with mono. She was seen in the ER on the morning of January 15 for nausea. She received Benadryl, Dilaudid, normal saline, Reglan, Zofran while here. She was felt to have some postoperative dehydration, had postoperative pain as well. Related Data Home Medications ?Medication ?Instructions ?Recorded ?Confirmed No Known Home Medications 01/02/23 01/02/23 Allergies Allergy/AdvReac Type Severity Reaction Status Date / Time Sulfa (Sulfonamide Allergy Severe Rash Verified 01/02/23 09:43 Antibiotics) latex Allergy Intermediate rash Verified 01/02/23 09:43 Review of Systems Narrative: As per HPI. [facility] Medical History (Updated 01/16/25 @ 19:54 by Lori Guaman MD) Sore throat ?J02.9 - Acute pharyngitis, unspecified (ICD-10) Surgical History (Updated 01/16/25 @ 19:48 by Lori Guaman MD) Status post tonsillectomy ?Z90.89 - Acquired absence of other organs (ICD-10) Social History Smoking Status: Never smoker Do you use any of these nicotine containing products: None Second hand tobacco smoke exposure: Yes How often do you have a drink containing alcohol: never How often do you have six or more drinks on one occasion: Never AUDIT-C Alcohol total score: 0 Non-prescribed substance use: marijuana (any form) Non-prescribed substance use details: I smoke weed every day. service: No Exam Const: Vital Signs, click to edit/add: Vital Signs - 24 hr 01/16/25 19:31 01/16/25 19:37 01/16/25 19:55 Temperature 98.8 F Pulse Rate [Pulse Oximeter] 99 99 Respiratory Rate 18 20 Blood Pressure [Ri ght Upper Arm] 154/100 H 149/84 H Pulse Oximetry 98 98 98 Oxygen Delivery Me thod Room Air Room Air This 19-year-old female is alert, interactive, no apparent distress. She is watched checking into the ED and walking back into exam room 4. She is hanging onto an emesis bag from the hospital. It has tissues in it. Up close can see a little bit of blood smearing and is small clots, less than nickel size. Pupils are equal round reactive, sclera clear, face atraumatic. Speech is normal. She has some pain with opening her mouth but can see back far enough, there is some blood around her lips, oral mucosa and tongue have a little bit of blood staining but underlying mucosa looks normal. She has white eschars over the tonsillar bases, there is a clot on the right base, do not see any active bleeding at this time. She did just spit up a little bit of bloody saliva prior to my oral examination. Neck supple, no adenopathy or masses. Lungs are clear, good air entry, no wheezing or crackles, no tachypnea, no accessory muscle use. CV regular rate and rhythm, no murmur. Documenting provider has reviewed patient's vital signs: yes Course Course ED Course: Patient is having obvious postop tonsillar bleed. She is not extravasated in, just seems to be having a small amount of clots that she spitting up frequently. I do not see significant bleeding along the tonsillar base. Will continue to monitor her. Nursing staff is placing an IV, will get some baseline labs, start some IV fluids and get Zofran on board. Will see if there is availability of ENT, otherwise patient is going to need to transfer back to [place] and will talk to the ER there. Reevaluation(s) Time of Reevaluation #1: 19:45 Reevaluation #1: Did go back to let patient know that she will be transferring via ambulance. She has no increase in her bleeding, do feel she is stable for transfer. Did review medications with her. She has been doing 2 Vicodin 5/325 every 4 hours. She has been doing a 1000 of Tylenol with ibuprofen 4 times a day. I am going to add on a Tylenol level and liver panel, blood has already been drawn. She tells me that she was told that she could take Tylenol with the ibuprofen and then does the Vicodin 2 tablets every 4 hours. In her discharge it clearly states that she can take 800 mg of ibuprofen and can be combined with [place]. There is no recommendation for additional Tylenol in this discharge. Vital Signs Vital signs: Initial Vital Signs Temperature 98.8 F 01/16/25 19:31 Temperature Source Temporal Artery Scan 01/16/25 19:31 Pulse Rate 99 01/16/25 19:31 Pulse Rhythm Regular 01/16/25 19:31 Respiratory Rate 18 01/16/25 19:31 Blood Pressure 154/100 H 01/16/25 19:31 Blood Pressure Mean 118 H 01/16/25 19:31 Blood Pressure Position Sitting 01/16/25 19:31 Pulse Oximetry 98 01/16/25 19:31 Oxygen Delivery Method Room Air 01/16/25 19:31 Vital Signs Temperature 98.8 F 01/16/25 19:31 Pulse Rate 99 01/16/25 19:31 Respiratory Rate 18 01/16/25 19:31 Blood Pressure 154/100 H 01/16/25 19:31 Pulse Oximetry 98 01/16/25 19:31 Oxygen Delivery Method Room Air 01/16/25 19:31 Temperature 98.8 F 01/16/25 19:31 Pulse Rate 99 01/16/25 19:55 Respiratory Rate 20 01/16/25 19:55 Blood Pressure 149/84 H 01/16/25 19:55 Pulse Oximetry 98 01/16/25 19:55 Oxygen Delivery Method Room Air 01/16/25 19:55 Medications Administered Medications: Generic Name Dose Route Start Last Admin Trade Name Freq PRN Reason Stop Dose Admin Sodium Chloride 1,000 mls @ 1,000 mls/hr 01/16/25 19:33 01/16/25 19:42 0.9 % Sodium Chloride 1000 Ml IV 01/16/25 20:32 1,000 mls/hr .Q1H HEIDY Administration Ondansetron HCl 4 mg 01/16/25 19:30 01/16/25 19:42 Ondansetron 2 Mg/Ml Inj IVP 01/16/25 19:31 4 mg ONCE ONE Administration Medical Decision Making Lab Data Lab results reviewed: Yes I reviewed the patient's lab results Labs: Lab Results 01/16/25 Range/Units 19:31 WBC 10.87 (4.50-11.00) K/uL RBC 4.91 (4.00-5.20) m/uL Hgb 14.8 (12.0-16.0) gm/dL Hct 45.5 (33.0-51.0) % MCV 93 (80-100) fL MCH 30 (26-34) pg MCHC 33 (32-36) gm/dL RDW Coeff of Marek 11.7 (11.5-15.5) % Plt Count 292 (140-440) K/uL Neut % (Auto) 68.0 (42.0-72.0) % Lymph % (Auto) 22.8 (20-44) % [place] % (Auto) 7.5 (0.0-11.0) % Eos % (Auto) 1.1 (0.0-7.0) % Baso % (Auto) 0.5 (0.0-3.0) % Neut # (Auto) 7.39 H (1.7-7.0) K/uL Lymph # (Auto) 2.48 (0.90-2.90) K/uL [place] # (Auto) 0.80 (0.00-0.90) K/UL Eos # (Auto) 0.12 (0.00-0.50) K/uL Baso # (Auto) 0.05 (0.00-0.30) K/uL Abs Immat Gran (auto) 0.01 (0.00-0.30) K/uL Imm/Tot Granulo (auto) 0.1 % Sodium 136 (135-149) mmol/L Potassium 4.1 (3.6-5.1) mmol/L Chloride 96 (96-114) mmol/L Carbon Dioxide 25 (20-32) mmol/L Anion Gap 15 (7-15) mEq/L BUN 17 (5-24) mg/dL Creatinine 0.7 (0.5-1.5) mg/dL Estimated Creat Clear 110.16 Estimated GFR 127 ml/min Glucose 111 (60-115) mg/dL Calcium 9.5 (8.4-10.6) mg/dL Total Bilirubin 0.8 (0.1-1.5) mg/dL Direct Bilirubin 0.5 (0.0-0.5) mg/dL AST 35 (12-35) U/L ALT 99 H (4-35) U/L Alkaline Phosphatase 76 (40-150) U/L Total Protein 7.9 (6.0-8.3) g/dL Albumin 4.7 (3.3-5.0) g/dL Acetaminophen < 10.0 (10.0-30.0) ug/mL Lab Acknowledgement Test Added Discharge Plan Discharge Clinical Impression: Hemorrhage, tonsil, postoperative Patient Disposition: [facility] Discharge Location: [facility]
[2025-01-16 19:31] VITALS: BP 154/100; PULSE 99; RESP 18; TEMP 37.1; O2SAT 98; BMI 20.6
[2025-01-16 19:37] VITALS: O2SAT 98
[2025-01-16 19:39] LABS: Hematocrit* 45.5 % (33.0-51.0); Hemoglobin* 14.8 gm/dL (12.0-16.0); Immature Granulocytes Abs Auto 0.01 K/uL (0.00-0.30); Immature Granulocytes Pct Auto 0.1 %; Lymphocytes Absolute Auto 2.48 K/uL (0.90-2.90); Mean Corpuscular HGB Conc 33 gm/dL (32-36); Mean Corpuscular Hemoglobin 30 pg (26-34); Mean Corpuscular Volume 93 fL (80-100); RDW Coefficient of Variation % 11.7 % (11.5-15.5); Red Blood Count* 4.91 m/uL (4.00-5.20); White Blood Count* 10.87 K/uL (4.50-11.00)
[2025-01-16] MEDS: ONDANSETRON 2 MG/ML inj 4 MG IVP (19:42)
[2025-01-16 19:43] LABS: Slide Review Reflex No
[2025-01-16 19:52] LABS: Chloride* 96 mmol/L (96-114)
[2025-01-16 19:53] LABS: Albumin* 4.7 g/dL (3.3-5.0); Potassium* 4.1 mmol/L (3.6-5.1); Sodium* 136 mmol/L (135-149)
[2025-01-16 19:55] VITALS: BP 149/84; PULSE 99; RESP 20; O2SAT 98
[2025-01-16 19:56] LABS: Alanine Aminotransferase* 99 U/L (4-35); Alkaline Phosphatase* 76 U/L (40-150); Anion Gap 15 mEq/L (7-15); Aspartate Amino Transferase* 35 U/L (12-35); Bilirubin Direct* 0.5 mg/dL (0.0-0.5); Bilirubin Total* 0.8 mg/dL (0.1-1.5); Blood Urea Nitrogen* 17 mg/dL (5-24); Calcium* 9.5 mg/dL (8.4-10.6); Carbon Dioxide* 25 mmol/L (20-32); Creatinine* 0.7 mg/dL (0.5-1.5); Est. Creatinine Clearance* 110.16; Estimated Glomerular Filt Rate 127 ml/min; Glucose* 111 mg/dL (60-115); Total Protein* 7.9 g/dL (6.0-8.3)
[2025-01-16 20:09] LABS: Acetaminophen* < 10.0 ug/mL (10.0-30.0)
== END 2025-01-16 20:08 | disposition short-term general hospital (02) ==
PROVIDERS: Emergency Provider Family Medicine
DX: J95.830 Postprocedural hemorrhage of a respiratory system organ or structure following a respiratory system procedure (principal); Z88.2 Allergy status to sulfonamides
CPT/HCPCS: 36415; 80048; 80076; 80143; 85025; 94761; 96361; 96374; 99283; 99285; J2405; J7030

== ENCOUNTER 2025-01-16 20:01 | Outpatient (CLI) | payer OTHER, SELFPAY | END 2025-01-16 20:02 | disposition home or self-care (01) | PROVIDERS: Visit Provider Emergency Medicine | DX: R04.1 Hemorrhage from throat (principal); T81.31XA Disruption of external operation (surgical) wound, not elsewhere classified, initial encounter | CPT/HCPCS: A0425; A0427 ==